=== PATIENT | male | born 1955 | race Caucasian/White ===

== ENCOUNTER 2017-05-19 07:45 | Day surgery (SDC) | payer BC ==
[2017-05-19] MEDS ORDERED: Midazolam 1 MG/ML 2 ML SDV ONE (07:47)
[2017-05-19] MEDS ORDERED: Propofol 200 MG/20 ML SDV ONE (07:48)
[2017-05-19] MEDS ORDERED: Sodium Chloride 0.9% 1,000 ML IV SCH (08:00)
[2017-05-19] MEDS ORDERED: Sodium Chloride 0.9% 5 ML Syringe FLUSH PRN (08:00)
[2017-05-19] MEDS ORDERED: Propofol 200 MG/20 ML SDV IV ONE (08:57)
[2017-05-19] MEDS ORDERED: Midazolam 1 MG/ML 2 ML SDV IV ONE (08:57)
--- NOTE | 2017-05-19 09:32 | PCM.OPNOTE ---
- General Post-Op/Procedure Note Date of Surgery/Procedure: 05/19/17 Operative Procedure(s): Colonoscopy. Anesthesia Technique: MAC Primary Surgeon: Marin Weinstein Complications: None Condition: Good Free Text/Narrative:: INFORMED CONSENT: Patient is here today for elective colonoscopy. All aspects of this procedure have been discussed with the patient. All possible complications also, including possibility of perforation, infection, pain, bleeding and unknown complications. In the event of perforation patient may need to have abdominal exploration, colon resection, colostomy and even was discussed. Anesthetic complications were handled by anesthesia department. The patient understands fully well. Patient did not have any further questions for me at the end of my interview. The patient wishes for me to proceed. PREOPERATIVE DIAGNOSIS/INDICATIONS: [Hemoccult-positive stool, screening] POSTOPERATIVE DIAGNOSIS: [as above] INSTRUMENT USED: Olympus videocolonoscope. ASA CLASSIFICATION: [2] ANESTHESIA: Continuous EKG, oximetry and intermittent blood pressure and respiratory monitoring were performed throughout the procedure. IV Versed and Fentanyl were administered. PROCEDURE PERFORMED: Colonoscopy POSITIONS OF PATIENT: Left lateral. RECTUM: Normal. SIGMOID COLON: Normal. DESCENDING COLON: Normal. SPLENIC FLEXURE: Normal. TRANSVERSE COLON: Normal. HEPATIC FLEXURE: Normal. ASCENDING COLON: Normal. CECUM: Normal. ILEOCECAL VALVE: Normal. BIOPSY: None. TOLERANCE: Excellent. COMPLICATIONS: None.
== END 2017-05-19 11:00 | disposition home or self-care (01) ==
LOC: KA.SDS 07:45
PROVIDERS: ATTEND Family Medicine
DX: Z12.11 Encounter for screening for malignant neoplasm of colon (principal); I10 Essential (primary) hypertension; I25.10 Atherosclerotic heart disease of native coronary artery without angina pectoris; E66.9 Obesity, unspecified; E78.5 Hyperlipidemia, unspecified; E11.9 Type 2 diabetes mellitus without complications; Z95.1 Presence of aortocoronary bypass graft; Z79.82 Long term (current) use of aspirin; Z79.01 Long term (current) use of anticoagulants; Z79.899 Other long term (current) drug therapy; Z68.29 Body mass index [BMI] 29.0-29.9, adult
CPT/HCPCS: 36416; 45378; 82962; 85610; J2250; J2704; J7030

== ENCOUNTER 2018-10-13 13:57 | Inpatient (IN) | payer MEDICARE, BC ==
[2018-10-13] MEDS ORDERED: Sodium Chloride 0.9% 1,000 ML IV ONE (14:11)
[2018-10-13] MEDS ORDERED: Acetaminophen 325 MG Tab PO ONE (14:29)
[2018-10-13 14:31] LABS: ANION GAP 22.7 mmol/L (5-15)
--- NOTE | 2018-10-13 14:33 | EDM.PDOC ---
ED HPI GENERAL MEDICAL PROBLEM - General Chief Complaint: Neurological Problem Stated Complaint: Upper respiratory symptoms Time Seen by Provider: 10/13/18 14:09 Source of Information: Reports: Patient, EMS, EMS Notes Reviewed, Family, Provider ([facility]) History Limitations: Reports: No Limitations - History of Present Illness Onset: Gradual Onset Date: 10/10/18 Duration: Day(s):, Getting Worse Severity: Mild Improves with: Reports: None Worsens with: Reports: None Associated Symptoms: Reports: Confusion, Cough, cough w sputum, Fever/Chills, Shortness of Breath, Weakness - Related Data Allergies Allergy/AdvReac Type Severity Reaction Status Date / Time No Known Drug Allergies Allergy NKDA Verified 10/13/18 14:55 Home Meds: Home Meds Aspirin [Halfprin] 81 mg PO BRK 05/16/17 [History] Fish Oil/[place]-3 Fatty Acids [Fish Oil] 1 each PO DAILY 05/16/17 [History] Lisinopril [Prinivil] 20 mg PO DAILY 05/16/17 [History] Loteprednol Etabonate [Lotemax] 1 drop EYERT BID 05/16/17 [History] Metoprolol Tartrate 12.5 mg PO BID 05/16/17 [History] Warfarin [Coumadin] 5 mg PO ASDIRECTED 05/16/17 [History] atorvaSTATin [Lipitor] 20 mg PO BEDTIME 05/16/17 [History] Nitroglycerin 0.4 mg SL ASDIRECTED PRN 10/13/18 [History] Potassium Gluconate 500 mg PO BEDTIME 10/13/18 [History] Warfarin [Coumadin] 2.5 mg PO MOWEFR 10/13/18 [History] metFORMIN [Glucophage] 500 mg PO BIDMEALS 10/13/18 [History] Past Medical History HEENT History: Reports: Cataract Cardiovascular History: Reports: Heart Valve Replacement, High Cholesterol Musculoskeletal History: Reports: Gout - Infectious Disease History Infectious Disease History: Reports: Measles - Past Surgical History HEENT Surgical History: Reports: Other (See Below) Other HEENT Surgeries/Procedures: cornea transplant 1999 Cardiovascular Surgical History: Reports: Coronary Artery Bypass, Valve Replacement Musculoskeletal Surgical History: Reports: None Social & Family History - Family History Family Medical History: Noncontributory - Tobacco Use Smoking Status *Q: Never Smoker Second Hand Smoke Exposure: No - Caffeine Use Caffeine Use: Reports: None - Recreational Drug Use Recreational Drug Use: No ED ROS GENERAL - Review of Systems Review Of Systems: ROS reveals no pertinent complaints other than HPI. Constitutional: Reports: Fever, Chills, Weakness HEENT: Reports: No Symptoms Respiratory: Reports: Shortness of Breath, Cough, Sputum Cardiovascular: Reports: No Symptoms. Denies: Chest Pain Endocrine: Reports: No Symptoms GI/Abdominal: Reports: No Symptoms : Reports: No Symptoms Musculoskeletal: Reports: No Symptoms Skin: Reports: No Symptoms Neurological: Reports: Confusion Psychiatric: Reports: No Symptoms Hematologic/Lymphatic: Reports: No Symptoms Immunologic: Reports: No Symptoms ED EXAM, GENERAL - Physical Exam Exam: See Below Exam Limited By: No Limitations General Appearance: Alert, WD/WN, No Apparent Distress Eye Exam: Bilateral Eye: Normal Inspection Nose: Normal Inspection Throat/Mouth: Normal Inspection, Normal Oropharynx, No Airway Compromise ( Unless concern is) Head: Atraumatic, Normocephalic ( is concerned thathis words out when you see Dr. 5-year-old. He is still is slightly is is is a CT is Friday. Lab work is working with CT of ) Neck: Normal Inspection Respiratory/Chest: No Respiratory Distress, Crackles (bibasilar) Cardiovascular: Tachycardia GI/Abdominal: Normal Bowel Sounds, Soft, Non-Tender, No Organomegaly, No Distention, No Abnormal Bruit, No Mass Back Exam: Normal Inspection. No: CVA Tenderness (L), CVA Tenderness (R) Extremities: Normal Inspection, No Pedal Edema Neurological: Alert, Oriented, Abnormal Gait (Of chronic nature), Sensory/Motor Deficit (Of chronic nature), Other (Minimal slurring of some words, otherwise no new deficits. Per ). No: Normal Gait, No Motor/Sensory Deficits Psychiatric: Normal Affect, Normal Mood Skin Exam: Warm, Dry, Intact, Normal Color, No Rash Lymphatic: No Adenopathy EKG INTERPRETATION EKG Date: 10/13/18 Time: 14:10 Rhythm: Other (SR) Rate (Beats/Min): 125 [place]: LAD-Left [place] Deviation P-Wave: Variable QRS: Other (Intraventricular block) Comparison: NA - No Prior EKG Course - Vital Signs Last Recorded V/S: Last Vital Signs Temp 99.1 F 10/13/18 15:03 Pulse 116 H 10/13/18 15:09 Resp 31 H 10/13/18 14:08 BP 110/48 L 10/13/18 15:09 Pulse Ox 93 L 10/13/18 14:08 - Orders/Labs/Meds Orders: Active Orders 24 hr Category Date Time Status Patient Status [ADT] Routine ADT 10/13/18 15:44 Ordered EKG Documentation Completion [RC] ASDIRECTED Care 10/13/18 15:31 Active Oxygen Therapy [RC] PRN Care 10/13/18 15:44 Ordered Peripheral IV Care [RC] . DIRECTED Care 10/13/18 14:12 Ordered VTE/DVT Education [RC] PER UNIT ROUTINE Care 10/13/18 15:44 Ordered Vital Signs [RC] Q4H Care 10/13/18 15:44 Ordered CULTURE BLOOD [BC] Stat Lab 10/13/18 14:38 Ordered CULTURE BLOOD [BC] Stat Lab 10/13/18 14:38 Ordered Azithromycin [Zithromax] 500 mg Med 10/13/18 15:39 Ordered Sodium Chloride 0.9% [Normal Saline] 250 ml IV ONETIME Sodium Chloride 0.9% [Saline Flush] Med 10/13/18 14:11 Ordered 10 ml FLUSH Q8HR PRN Blood Culture x2 Reflex Set [OM.PC] Stat Oth 10/13/18 14:38 Ordered Peripheral IV Insertion Adult [OM.PC] Routine Oth 10/13/18 14:11 Ordered Resuscitation Status Routine Resus Stat 10/13/18 15:44 Ordered EKG 12 Lead [EK] Routine Ther 10/13/18 14:05 Ordered Medication Orders Azithromycin 500 mg/ Sodium (Chloride) 250 mls @ 250 mls/hr IV ONETIME ONE Stop: 10/13/18 16:38 Sodium Chloride (Saline Flush) 10 ml FLUSH Q8HR PRN PRN Reason: keep vein open Labs: Laboratory Tests 10/13/18 10/13/18 10/13/18 Range/Units 14:10 14:10 14:10 WBC 19.73 H (5.00-10.00) 10^3/uL RBC 5.04 (4.50-6.00) 10^6/uL Hgb 13.5 (13.0-17.0) g/dL Hct 39.1 L (40.0-52.0) % MCV 77.6 L (82.0-92.0) fL MCH 26.8 L (27.0-31.0) pg MCHC 34.5 (32.0-36.0) g/dL RDW 15.4 H (11.5-14.5) % Plt Count 167 (150-400) 10^3/uL MPV 12.0 H (7.4-10.4) fL Add Manual Diff Yes Neutrophils % (Manual) 91 H (50-70) % Band Neutrophils % 1 L (4-12) % Lymphocytes % (Manual) 3 L (20-40) % Monocytes % (Manual) 5 (2-8) % Absolute Neutrophils 18.1516 Lymphocytes # (Manual) 0.5919 Monocytes # (Manual) 0.9865 PT 15.9 H (8.9-11.4) SEC INR 1.6 H (0.9-1.1) APTT 35.2 H (23.1-31.3) SEC Sodium 119 L* (136-145) mmol/L Potassium 5.0 (3.3-5.3) mmol/L Chloride 85 L* (98-115) mmol/L Carbon Dioxide 16.3 L (21.0-32.0) mmol/L Anion Gap 22.7 H (5-15) mmol/L BUN 93 H* (6-25) mg/dL Creatinine 2.87 H (0.51-1.17) mg/dL Est Cr Clr Drug Dosing TNP Estimated GFR (MDRD) 22 mL/min Glucose 463 H (75 - 99) mg/dL Lactic Acid (0.4-2.0) mmol/L Calcium 8.8 (8.7-10.3) mg/dL Total Bilirubin 1.3 H (0.2-1.0) mg/dL AST 34 (15-37) U/L ALT 18 (12-78) U/L Alkaline Phosphatase 74 (46-116) IU/L Total Protein 7.3 (6.4-8.2) g/dL Albumin 2.86 L (3.00-4.80) g/dL 10/13/18 Range/Units 14:52 WBC (5.00-10.00) 10^3/uL RBC (4.50-6.00) 10^6/uL Hgb (13.0-17.0) g/dL Hct (40.0-52.0) % MCV (82.0-92.0) fL MCH (27.0-31.0) pg MCHC (32.0-36.0) g/dL RDW (11.5-14.5) % Plt Count (150-400) 10^3/uL MPV (7.4-10.4) fL Add Manual Diff Neutrophils % (Manual) (50-70) % Band Neutrophils % (4-12) % Lymphocytes % (Manual) (20-40) % Monocytes % (Manual) (2-8) % Absolute Neutrophils Lymphocytes # (Manual) Monocytes # (Manual) PT (8.9-11.4) SEC INR (0.9-1.1) APTT (23.1-31.3) SEC Sodium (136-145) mmol/L Potassium (3.3-5.3) mmol/L Chloride (98-115) mmol/L Carbon Dioxide (21.0-32.0) mmol/L Anion Gap (5-15) mmol/L BUN (6-25) mg/dL Creatinine (0.51-1.17) mg/dL Est Cr Clr Drug Dosing Estimated GFR (MDRD) mL/min Glucose (75 - 99) mg/dL Lactic Acid 2.6 H (0.4-2.0) mmol/L Calcium (8.7-10.3) mg/dL Total Bilirubin (0.2-1.0) mg/dL AST (15-37) U/L ALT (12-78) U/L Alkaline Phosphatase (46-116) IU/L Total Protein (6.4-8.2) g/dL Albumin (3.00-4.80) g/dL Meds: Medications Generic Name Dose Route Start Last Admin Trade Name Freq PRN Reason Stop Dose Admin Azithromycin 500 mg/ Sodium 250 mls @ 250 mls/hr 10/13/18 15:39 Chloride IV 10/13/18 16:38 ONETIME ONE Sodium Chloride 10 ml 10/13/18 14:11 Saline Flush FLUSH Q8HR PRN keep vein open Discontinued Medications Generic Name Dose Route Start Last Admin Trade Name Freq PRN Reason Stop Dose Admin Acetaminophen 650 mg 10/13/18 14:29 10/13/18 14:33 Tylenol PO 10/13/18 14:30 650 mg NOW ONE Administration Ceftriaxone Sodium 1 gm 10/13/18 15:39 Rocephin IVPUSH 10/13/18 15:40 ONETIME ONE Sodium Chloride 1,000 mls @ 999 mls/hr 10/13/18 14:11 10/13/18 14:25 Normal Saline IV 10/13/18 15:11 999 mls/hr .BOLUS ONE Administration Metformin HCl 500 mg 10/13/18 14:56 10/13/18 15:09 Glucophage PO 10/13/18 14:57 500 mg ONETIME ONE Administration Metoprolol Tartrate 12.5 mg 10/13/18 14:56 10/13/18 15:09 Lopressor PO 10/13/18 14:57 12.5 mg ONETIME ONE Administration - Radiology Interpretation Free Text/Narrative:: Chest x-ray shows right lower lobe pneumonia. CT head without contrast shows no acute intracranial process - Re-Assessments/Exams Free Text/Narrative Re-Assessment/Exam: 10/13/18 15:39 Vital signs stable, patient not confused and speaking properly, at bedside. Discussed case with Dr. Restrepo and patient will be admitted inpatient and followed. 1 g Rocephin and 500 mg Zithromax given in the ER. 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 use Diabetes mellitus complication status: with kidney complications Diabetes mellitus complication detail: with other kidney complication Qualified Code(s): E11.29 - Type 2 diabetes mellitus with other diabetic kidney complication Pneumonia Qualifiers: Pneumonia type: due to unspecified organism Laterality: right Lung location: lower lobe of lung Qualified Code(s): J18.1 - Lobar pneumonia, unspecified organism Atrial fibrillation Qualifiers: Atrial fibrillation type: chronic Qualified Code(s): I48.2 - Chronic atrial fibrillation - Discharge Information Referrals: Jessica Alcazar PA-C [Primary Care Provider] - Forms: ED Department Discharge - My Orders Last 24 Hours: My Active Orders 10/13/18 14:05 EKG 12 Lead [EK] Routine 10/13/18 14:11 Sodium Chloride 0.9% [Saline Flush] 10 ml FLUSH Q8HR PRN Peripheral IV Insertion Adult [OM.PC] Routine 10/13/18 14:12 Peripheral IV Care [RC] . DIRECTED 10/13/18 14:38 CULTURE BLOOD [BC] Stat CULTURE BLOOD [BC] Stat Blood Culture x2 Reflex Set [OM.PC] Stat 10/13/18 15:31 EKG Documentation Completion [RC] ASDIRECTED 10/13/18 15:39 Azithromycin [Zithromax] 500 mg Sodium Chloride 0.9% [Normal Saline] 250 ml IV ONETIME 10/13/18 15:44 Patient Status [ADT] Routine Oxygen Therapy [RC] PRN VTE/DVT Education [RC] PER UNIT ROUTINE Vital Signs [RC] Q4H Resuscitation Status Routine - Assessment/Plan Last 24 Hours: My Active Orders 10/13/18 14:05 EKG 12 Lead [EK] Routine 10/13/18 14:11 Sodium Chloride 0.9% [Saline Flush] 10 ml FLUSH Q8HR PRN Peripheral IV Insertion Adult [OM.PC] Routine 10/13/18 14:12 Peripheral IV Care [RC] . DIRECTED 10/13/18 14:38 CULTURE BLOOD [BC] Stat CULTURE BLOOD [BC] Stat Blood Culture x2 Reflex Set [OM.PC] Stat 10/13/18 15:31 EKG Documentation Completion [RC] ASDIRECTED 10/13/18 15:39 Azithromycin [Zithromax] 500 mg Sodium Chloride 0.9% [Normal Saline] 250 ml IV ONETIME 10/13/18 15:44 Patient Status [ADT] Routine Oxygen Therapy [RC] PRN VTE/DVT Education [RC] PER UNIT ROUTINE Vital Signs [RC] Q4H Resuscitation Status Routine Assessment:: Pneumonia Plan: Admit inpatient to [facility]
[2018-10-13 14:34] LABS: CHLORIDE,CL 85 mmol/L (98-115); SODIUM,NA 119 mmol/L (136-145)
[2018-10-13] MEDS ORDERED: Metoprolol Tartrate 25 MG Tab PO ONE (14:56)
[2018-10-13] MEDS ORDERED: metFORMIN 500 MG Tab PO ONE (14:56)
--- NOTE | 2018-10-13 15:29 | CT ---
[id number] CT/CT Head WO IV EXAM: NONCONTRAST HEAD CT INDICATION: Difficulty speaking. COMPARISON: None. DISCUSSION: The ventricles and sulci are normal in size and configuration. There are mild chronic small vessel ischemic changes. 4 mm age-indeterminate right cerebellar hemisphere lacunar infarct. No mass effect or midline shift. No acute hemorrhage or extra-axial fluid collection. No acute territorial infarct is identified. A limited look at the orbits and paranasal sinuses is unremarkable. IMPRESSION: 1. Mild chronic small vessel ischemic changes and small age-indeterminate right cerebellar lacunar infarct. 2. No definite explanation for speech difficulties. Ward Crespo MD 10/13/18 [id number] Thank you for allowing us to participate in the care of your patient.
--- NOTE | 2018-10-13 15:30 | CR ---
[id number] RAD/RAD Chest PA or AP 1V EXAM: RAD Chest PA or AP 1V INDICATION: UPPER RESPIRATORY INFECTION. COMPARISON: [place] [facility]. DISCUSSION: Right lung base parenchymal opacity. Correlate for signs of infection, as this is suspicious for pneumonia. Left lung is clear. Cardiomediastinal silhouette is stable in size and contour. IMPRESSION: Abnormal right lung base, most consistent with pneumonia described above. Tobias Plummer MD 10/13/18 1526 Thank you for allowing us to participate in the care of your patient.
[2018-10-13] MEDS ORDERED: Azithromycin 500 MG in Sodium Chloride 0.9% 250 ML IV ONE (15:39)
[2018-10-13] MEDS ORDERED: cefTRIAXone 1 GM Vial IVPUSH ONE (15:39)
--- NOTE | 2018-10-13 18:11 | PCM.HP ---
H&P History of Present Illness - General Date of Service: 10/13/18 Admit Problem/Dx: Admission Diagnosis/Problem Admission Diagnosis/Problem Pneumonia - History of Present Illness Initial Comments - Free Text/Narative: Patient has been poorly past 2-3 days, arived at [facility] and staff noticed his speech was "off" and not clear and was sent to [facility] ED via ambulance. Was in his normal state of health up until 3 days ago, sweaty, alter speech, no n/v/d, denied cough, fell and hit his head, states he was unstable, Denies EToh or drugs. - Related Data Allergies/Adverse Reactions: Allergies Allergy/AdvReac Type Severity Reaction Status Date / Time No Known Drug Allergies Allergy NKDA Verified 10/13/18 14:55 Home Medications: Home Meds Aspirin [Halfprin] 81 mg PO BRK 05/16/17 [History] Fish Oil/[place]-3 Fatty Acids [Fish Oil] 1 each PO DAILY 05/16/17 [History] Lisinopril [Prinivil] 20 mg PO DAILY 05/16/17 [History] Loteprednol Etabonate [Lotemax] 1 drop EYERT BID 05/16/17 [History] Metoprolol Tartrate 12.5 mg PO BID 05/16/17 [History] Warfarin [Coumadin] 5 mg PO SUTUTHSA 05/16/17 [History] atorvaSTATin [Lipitor] 20 mg PO DAILY 05/16/17 [History] Nitroglycerin 0.4 mg SL ASDIRECTED PRN 10/13/18 [History] Potassium Gluconate 500 mg PO BEDTIME 10/13/18 [History] Warfarin [Coumadin] 2.5 mg PO MOWEFR 10/13/18 [History] metFORMIN [Glucophage] 500 mg PO BIDMEALS 10/13/18 [History] Past Medical History HEENT History: Reports: Cataract Cardiovascular History: Reports: Heart Valve Replacement, High Cholesterol Musculoskeletal History: Reports: Gout Endocrine/Metabolic History: Reports: Diabetes, Type II - Infectious Disease History Infectious Disease History: Reports: Measles - Past Surgical History Head Surgeries/Procedures: Reports: None HEENT Surgical History: Reports: Other (See Below) Other HEENT Surgeries/Procedures: cornea transplant 1999 Cardiovascular Surgical History: Reports: Coronary Artery Bypass, Valve Replacement GI Surgical History: Reports: Colonoscopy Endocrine Surgical History: Reports: None Musculoskeletal Surgical History: Reports: None Dermatological Surgical History: Reports: None Social & Family History - Family History HEENT: Reports: None Cardiac: Reports: None Respiratory: Reports: Other (See Below) GI: Reports: None : Reports: None OBGYN: Reports: None Musculoskeletal: Reports: None - Tobacco Use Smoking Status *Q: Never Smoker Second Hand Smoke Exposure: No - Caffeine Use Caffeine Use: Reports: None - Recreational Drug Use Recreational Drug Use: No H&P Review of Systems - Review of Systems: Review Of Systems: See Below General: Reports: Malaise, Weakness, Night Sweats, Diaphoresis. Denies: Fever HEENT: Reports: No Symptoms Pulmonary: Reports: Shortness of Breath, Wheezing. Denies: Cough, Sputum Cardiovascular: Reports: No Symptoms Gastrointestinal: Reports: Decreased Appetite. Denies: Constipation, Diarrhea, Difficulty Swallowing, Melena Genitourinary: Reports: No Symptoms Musculoskeletal: Reports: No Symptoms Skin: Reports: No Symptoms Psychiatric: Denies: Confusion Neurological: Denies: Confusion Hematologic/Lymphatic: Reports: No Symptoms Immunologic: Reports: No Symptoms Exam - Exam Exam: See Below - Vital Signs Vital Signs: Last Vital Signs Temp 99.9 F 10/13/18 15:44 Pulse 122 H 10/13/18 15:44 Resp 25 H 10/13/18 15:44 BP 97/47 L 10/13/18 15:44 Pulse Ox 93 L 10/13/18 15:44 Weight: 200 lb 11.2 oz - Exam Quality Assessment: Supplemental Oxygen. No: Skin Breakdown General: Alert, Oriented, Cooperative, Mild Distress HEENT: Hearing Intact. No: Mucosa Moist & [place] Neck: Supple Lungs: Rhonchi Cardiovascular: Tachycardia GI/Abdominal Exam: Soft, Non-Tender. No: Hernia (Male) Exam: Deferred Back Exam: No: CVA Tenderness (L), CVA Tenderness (R) Extremities: Slow Capillary Refill. No: Pedal Edema Peripheral Pulses: 2+: Radial (L) Skin: Moist Neurological: Normal Tone, Sensation Intact Neuro Extensive - Mental Status: Alert, Oriented x3, Memory Intact Neuro Extensive - Motor, Sensory, Reflexes: CN II-XII Intact, Normal Reflexes. No: Ataxia, Receptive Aphasia, Total Aphasia Psychiatric: Alert - Patient Data Lab Results Last 24 hrs: Laboratory Results - last 24 hr 03/10/13/18 10/13/18 Range/Units 14:10 14:10 14:10 WBC 19.73 H (5.00-10.00) 10^3/uL RBC 5.04 (4.50-6.00) 10^6/uL Hgb 13.5 (13.0-17.0) g/dL Hct 39.1 L (40.0-52.0) % MCV 77.6 L (82.0-92.0) fL MCH 26.8 L (27.0-31.0) pg MCHC 34.5 (32.0-36.0) g/dL RDW 15.4 H (11.5-14.5) % Plt Count 167 (150-400) 10^3/uL MPV 12.0 H (7.4-10.4) fL Add Manual Diff Yes Neutrophils % (Manual) 91 H (50-70) % Band Neutrophils % 1 L (4-12) % Lymphocytes % (Manual) 3 L (20-40) % Monocytes % (Manual) 5 (2-8) % Absolute Neutrophils 18.1516 Lymphocytes # (Manual) 0.5919 Monocytes # (Manual) 0.9865 PT 15.9 H (8.9-11.4) SEC INR 1.6 H (0.9-1.1) APTT 35.2 H (23.1-31.3) SEC Sodium 119 L* (136-145) mmol/L Potassium 5.0 (3.3-5.3) mmol/L Chloride 85 L* (98-115) mmol/L Carbon Dioxide 16.3 L (21.0-32.0) mmol/L Anion Gap 22.7 H (5-15) mmol/L BUN 93 H* (6-25) mg/dL Creatinine 2.87 H (0.51-1.17) mg/dL Est Cr Clr Drug Dosing TNP Estimated GFR (MDRD) 22 mL/min Glucose 463 H (75 - 99) mg/dL POC Glucose (74-106) mg/dl Lactic Acid (0.4-2.0) mmol/L Calcium 8.8 (8.7-10.3) mg/dL Total Bilirubin 1.3 H (0.2-1.0) mg/dL AST 34 (15-37) U/L ALT 18 (12-78) U/L Alkaline Phosphatase 74 (46-116) IU/L Total Protein 7.3 (6.4-8.2) g/dL Albumin 2.86 L (3.00-4.80) g/dL 10/13/18 10/13/18 Range/Units 14:52 16:29 WBC (5.00-10.00) 10^3/uL RBC (4.50-6.00) 10^6/uL Hgb (13.0-17.0) g/dL Hct (40.0-52.0) % MCV (82.0-92.0) fL MCH (27.0-31.0) pg MCHC (32.0-36.0) g/dL RDW (11.5-14.5) % Plt Count (150-400) 10^3/uL MPV (7.4-10.4) fL Add Manual Diff Neutrophils % (Manual) (50-70) % Band Neutrophils % (4-12) % Lymphocytes % (Manual) (20-40) % Monocytes % (Manual) (2-8) % Absolute Neutrophils Lymphocytes # (Manual) Monocytes # (Manual) PT (8.9-11.4) SEC INR (0.9-1.1) APTT (23.1-31.3) SEC Sodium (136-145) mmol/L Potassium (3.3-5.3) mmol/L Chloride (98-115) mmol/L Carbon Dioxide (21.0-32.0) mmol/L Anion Gap (5-15) mmol/L BUN (6-25) mg/dL Creatinine (0.51-1.17) mg/dL Est Cr Clr Drug Dosing Estimated GFR (MDRD) mL/min Glucose (75 - 99) mg/dL POC Glucose 484 H (74-106) mg/dl Lactic Acid 2.6 H (0.4-2.0) mmol/L Calcium (8.7-10.3) mg/dL Total Bilirubin (0.2-1.0) mg/dL AST (15-37) U/L ALT (12-78) U/L Alkaline Phosphatase (46-116) IU/L Total Protein (6.4-8.2) g/dL Albumin (3.00-4.80) g/dL Result Diagrams: 10/15/18 07:20 10/16/18 06:41 [place] Results Last 24 hrs: Microbiology 10/13/18 14:10 Influenza Type A Antigen Screen - Final Nasal Aspirate, Unspecified NEGATIVE INFLUENZA A VIRUS AG Influenza Type B Antigen Screen - Final NEGATIVE INFLUENZA B VIRUS AG Problem List Initiated/Reviewed/Updated: Yes Orders Last 24hrs: Active Orders 24 hr Category Date Time Status Patient Status [ADT] Routine ADT 10/13/18 15:44 Ordered EKG Documentation Completion [RC] ASDIRECTED Care 10/13/18 15:31 Active Oxygen Therapy [RC] .PRN Care 10/13/18 15:44 Active Peripheral IV Care [RC] . DIRECTED Care 10/13/18 14:12 Active VTE/DVT Education [RC] PER UNIT ROUTINE Care 10/13/18 15:44 Active Vital Signs [RC] 1900,2300,0300,0700,1100,1500 Care 10/13/18 15:44 Active CULTURE BLOOD [BC] Stat Lab 10/13/18 15:00 Received CULTURE BLOOD [BC] Stat Lab 10/13/18 15:00 Received Sodium Chloride 0.9% [Saline Flush] Med 10/13/18 14:11 Active 10 ml FLUSH Q8HR PRN Blood Culture x2 Reflex Set [OM.PC] Stat Oth 10/13/18 14:38 Ordered Peripheral IV Insertion Adult [OM.PC] Routine Oth 10/13/18 14:11 Ordered Resuscitation Status Routine Resus Stat 10/13/18 15:44 Ordered Medication Orders Sodium Chloride (Saline Flush) 10 ml FLUSH Q8HR PRN PRN Reason: keep vein open Assessment/Plan Comment:: History of present illness Patient has been feeling very poorly past 2-3 days, arived at [facility] and staff noticed his speech was "off" and not clear and was sent to [facility] ED via ambulance. Was in his normal state of health up until 3 days ago, sweaty, alter speech, no n/v/d, denied cough, fell and hit his head, states he was unstable, Denies EToh tobacco or any other illicit drugs. Patient has had progressive weakness since the onset of his symptoms. also states on Friday the patient had a new onset speech difficulty in which he had difficulty finding words and speaking. He seemed to improve somewhat but today she has noted that he is unable to express words correctly. She also notes that at times his extremities shake. The patient had a fall on Friday due to his weakness and reportedly hit his head. Denies any head pain although he feels quite dizzy and lightheaded. Primary diagnosis Pneumonia, right lung base, CAP, Sepsis, T2DM uncontrolled, insulin for now, consider GLP-1a, Atrial flutter, paroxysmal, [id number] score 5, anticoagulation, lineant rate control with metoprolol Chronic problems S/P CABG x 3 S/P mitral valve annuloplasty HLD, statin therapy, HTN, [place] inhibition, metoprolol tartrate CAD, DAPT with ASA, DAPT score? Disposition for tonight, admit to acute care, full code at this time, fluids, add insulin, continue antibiotics azithromycin and Rocephin, oxygen to keep oxygen greater than 94%, hold metformin, monitor for any instability, telemetry. Labs in a.m. Monitor very carefully.
[2018-10-13] MEDS ORDERED: Nitroglycerin 0.4 MG Tab.SL SL PRN (19:17)
[2018-10-13] MEDS ORDERED: Sodium Chloride 0.9% 1,000 ML IV SCH (19:30)
[2018-10-13] MEDS ORDERED: Warfarin 5 MG Tab PO SCH (19:30)
[2018-10-13] MEDS ORDERED: Insulin Detemir 100 Units/ML 3 ML Pen SUBCUT ONE (19:40)
[2018-10-13] MEDS ORDERED: Insulin Aspart 100 Units/ML 3 ML Pen SUBCUT ONE (19:44)
[2018-10-13] MEDS ORDERED: Sodium Chloride 0.9% 500 ML IV ONE ×2 (19:58→22:45)
[2018-10-13] MEDS: Metoprolol Tartrate 25 MG Tab PO SCH (21:26)
[2018-10-13] MEDS ORDERED: Sodium Chloride 0.9% 10 ML SDV IV ONE (21:45)
[2018-10-13] MEDS ORDERED: Insulin Regular, Human 100 Units/ML 10 ML Vial IV ONE (22:24)
[2018-10-14] MEDS: guaiFENesin/Dextromethorphan 100-10 MG/5 ML Soln 5 ML Cup PO PRN ×4 (00:16→20:19)
[2018-10-14] MEDS ORDERED: Insulin Regular, Human 100 Units/ML 10 ML Vial IV ONE (01:59)
[2018-10-14] MEDS: Albuterol/Ipratropium 3.0-0.5 MG/3 ML Neb Soln NEB PRN (03:33)
[2018-10-14] MEDS ORDERED: Acetaminophen 325 MG Tab PO PRN (04:33)
[2018-10-14 08:14] LABS: ANION GAP 20.3 mmol/L (5-15)
[2018-10-14] MEDS: Metoprolol Tartrate 25 MG Tab PO SCH ×2 (09:05→20:20)
[2018-10-14] MEDS: cefTRIAXone 1 GM Vial IVPUSH SCH (09:05)
[2018-10-14] MEDS: Aspirin 81 MG Tab.EC PO SCH (09:06)
[2018-10-14] MEDS: Insulin Aspart 100 Units/ML 3 ML Pen SUBCUT SCH ×3 (09:11→18:24)
[2018-10-14] MEDS: Sodium Chloride 0.9% 10 ML Syringe FLUSH PRN (09:13)
--- NOTE | 2018-10-14 11:12 | PCM.PN ---
- General Info Date of Service: 10/14/18 Functional Status: Reports: Tolerating Diet, Urinating. Denies: Ambulating, Incentive Spirometry - Review of Systems General: Reports: Weakness, Fatigue, Malaise, Night Sweats. Denies: Fever HEENT: Reports: No Symptoms Pulmonary: Reports: Shortness of Breath, Cough, Sputum Cardiovascular: Denies: Chest Pain, Palpitations, Edema Gastrointestinal: Reports: No Symptoms Genitourinary: Reports: No Symptoms Musculoskeletal: Reports: No Symptoms Skin: Reports: Dryness Neurological: Denies: Confusion Psychiatric: Reports: No Symptoms - Patient Data Vitals - Most Recent: Last Vital Signs Temp 98.2 F 10/14/18 11:00 Pulse 74 10/14/18 11:00 Resp 20 10/14/18 11:00 BP 108/58 L 10/14/18 11:00 Pulse Ox 95 10/14/18 11:00 Weight - Most Recent: 200 lb 11.2 oz I&O - Last 24 Hours: Intake & Output 10/13/18 10/14/18 10/14/18 22:59 06:59 14:59 Intake Total 1420 1307 Output Total 520 Balance 1420 787 Lab Results Last 24 Hours: Laboratory Results - last 24 hr 10/13/18 10/13/18 10/13/18 Range/Units 14:10 14:10 14:10 WBC 19.73 H (5.00-10.00) 10^3/uL RBC 5.04 (4.50-6.00) 10^6/uL Hgb 13.5 (13.0-17.0) g/dL Hct 39.1 L (40.0-52.0) % MCV 77.6 L (82.0-92.0) fL MCH 26.8 L (27.0-31.0) pg MCHC 34.5 (32.0-36.0) g/dL RDW 15.4 H (11.5-14.5) % Plt Count 167 (150-400) 10^3/uL MPV 12.0 H (7.4-10.4) fL Immature Gran % (Auto) (0.0-5.0) % Neut % (Auto) (50.0-70.0) % Lymph % (Auto) (20.0-40.0) % Hitchcock % (Auto) (2.0-8.0) % Eos % (Auto) (1.0-3.0) % Baso % (Auto) (0.0-1.0) % Immature Gran # (Auto) (0.00-0.50) 10^3/uL Neut # (Auto) (2.50-7.00) 10^3/uL Lymph # (Auto) (1.00-4.00) 10^3/uL Hitchcock # (Auto) (0.10-0.80) 10^3/uL Eos # (Auto) (0.10-0.30) 10^3/uL Baso # (Auto) (0.00-0.10) 10^3/uL Add Manual Diff Yes Neutrophils % (Manual) 91 H (50-70) % Band Neutrophils % 1 L (4-12) % Lymphocytes % (Manual) 3 L (20-40) % Monocytes % (Manual) 5 (2-8) % Absolute Neutrophils 18.1516 Lymphocytes # (Manual) 0.5919 Monocytes # (Manual) 0.9865 PT 15.9 H (8.9-11.4) SEC INR 1.6 H (0.9-1.1) APTT 35.2 H (23.1-31.3) SEC Sodium 119 L* (136-145) mmol/L Potassium 5.0 (3.3-5.3) mmol/L Chloride 85 L* (98-115) mmol/L Carbon Dioxide 16.3 L (21.0-32.0) mmol/L Anion Gap 22.7 H (5-15) mmol/L BUN 93 H* (6-25) mg/dL Creatinine 2.87 H (0.51-1.17) mg/dL Est Cr Clr Drug Dosing TNP Estimated GFR (MDRD) 22 mL/min Glucose 463 H (75 - 99) mg/dL POC Glucose (74-106) mg/dl Lactic Acid (0.4-2.0) mmol/L Calcium 8.8 (8.7-10.3) mg/dL Total Bilirubin 1.3 H (0.2-1.0) mg/dL AST 34 (15-37) U/L ALT 18 (12-78) U/L Alkaline Phosphatase 74 (46-116) IU/L Troponin I (0.00-0.070) ng/mL C-Reactive Protein (0.0-0.9) mg/dL B-Natriuretic Peptide (0-100) pg/mL Total Protein 7.3 (6.4-8.2) g/dL Albumin 2.86 L (3.00-4.80) g/dL 10/13/18 10/13/18 10/13/18 Range/Units 14:10 14:52 16:29 WBC (5.00-10.00) 10^3/uL RBC (4.50-6.00) 10^6/uL Hgb (13.0-17.0) g/dL Hct (40.0-52.0) % MCV (82.0-92.0) fL MCH (27.0-31.0) pg MCHC (32.0-36.0) g/dL RDW (11.5-14.5) % Plt Count (150-400) 10^3/uL MPV (7.4-10.4) fL Immature Gran % (Auto) (0.0-5.0) % Neut % (Auto) (50.0-70.0) % Lymph % (Auto) (20.0-40.0) % Hitchcock % (Auto) (2.0-8.0) % Eos % (Auto) (1.0-3.0) % Baso % (Auto) (0.0-1.0) % Immature Gran # (Auto) (0.00-0.50) 10^3/uL Neut # (Auto) (2.50-7.00) 10^3/uL Lymph # (Auto) (1.00-4.00) 10^3/uL Hitchcock # (Auto) (0.10-0.80) 10^3/uL Eos # (Auto) (0.10-0.30) 10^3/uL Baso # (Auto) (0.00-0.10) 10^3/uL Add Manual Diff Neutrophils % (Manual) (50-70) % Band Neutrophils % (4-12) % Lymphocytes % (Manual) (20-40) % Monocytes % (Manual) (2-8) % Absolute Neutrophils Lymphocytes # (Manual) Monocytes # (Manual) PT (8.9-11.4) SEC INR (0.9-1.1) APTT (23.1-31.3) SEC Sodium (136-145) mmol/L Potassium (3.3-5.3) mmol/L Chloride (98-115) mmol/L Carbon Dioxide (21.0-32.0) mmol/L Anion Gap (5-15) mmol/L BUN (6-25) mg/dL Creatinine (0.51-1.17) mg/dL Est Cr Clr Drug Dosing Estimated GFR (MDRD) mL/min Glucose (75 - 99) mg/dL POC Glucose 484 H (74-106) mg/dl Lactic Acid 2.6 H (0.4-2.0) mmol/L Calcium (8.7-10.3) mg/dL Total Bilirubin (0.2-1.0) mg/dL AST (15-37) U/L ALT (12-78) U/L Alkaline Phosphatase (46-116) IU/L Troponin I (0.00-0.070) ng/mL C-Reactive Protein > 12.0 H (0.0-0.9) mg/dL B-Natriuretic Peptide (0-100) pg/mL Total Protein (6.4-8.2) g/dL Albumin (3.00-4.80) g/dL 10/13/18 10/13/18 10/13/18 Range/Units 20:12 21:31 23:13 WBC (5.00-10.00) 10^3/uL RBC (4.50-6.00) 10^6/uL Hgb (13.0-17.0) g/dL Hct (40.0-52.0) % MCV (82.0-92.0) fL MCH (27.0-31.0) pg MCHC (32.0-36.0) g/dL RDW (11.5-14.5) % Plt Count (150-400) 10^3/uL MPV (7.4-10.4) fL Immature Gran % (Auto) (0.0-5.0) % Neut % (Auto) (50.0-70.0) % Lymph % (Auto) (20.0-40.0) % Hitchcock % (Auto) (2.0-8.0) % Eos % (Auto) (1.0-3.0) % Baso % (Auto) (0.0-1.0) % Immature Gran # (Auto) (0.00-0.50) 10^3/uL Neut # (Auto) (2.50-7.00) 10^3/uL Lymph # (Auto) (1.00-4.00) 10^3/uL Hitchcock # (Auto) (0.10-0.80) 10^3/uL Eos # (Auto) (0.10-0.30) 10^3/uL Baso # (Auto) (0.00-0.10) 10^3/uL Add Manual Diff Neutrophils % (Manual) (50-70) % Band Neutrophils % (4-12) % Lymphocytes % (Manual) (20-40) % Monocytes % (Manual) (2-8) % Absolute Neutrophils Lymphocytes # (Manual) Monocytes # (Manual) PT (8.9-11.4) SEC INR (0.9-1.1) APTT (23.1-31.3) SEC Sodium (136-145) mmol/L Potassium (3.3-5.3) mmol/L Chloride (98-115) mmol/L Carbon Dioxide (21.0-32.0) mmol/L Anion Gap (5-15) mmol/L BUN (6-25) mg/dL Creatinine (0.51-1.17) mg/dL Est Cr Clr Drug Dosing Estimated GFR (MDRD) mL/min Glucose (75 - 99) mg/dL POC Glucose > 500 H > 500 H 475 H (74-106) mg/dl Lactic Acid (0.4-2.0) mmol/L Calcium (8.7-10.3) mg/dL Total Bilirubin (0.2-1.0) mg/dL AST (15-37) U/L ALT (12-78) U/L Alkaline Phosphatase (46-116) IU/L Troponin I (0.00-0.070) ng/mL C-Reactive Protein (0.0-0.9) mg/dL B-Natriuretic Peptide (0-100) pg/mL Total Protein (6.4-8.2) g/dL Albumin (3.00-4.80) g/dL 10/14/18 10/14/18 10/14/18 Range/Units 00:13 01:11 02:19 WBC (5.00-10.00) 10^3/uL RBC (4.50-6.00) 10^6/uL Hgb (13.0-17.0) g/dL Hct (40.0-52.0) % MCV (82.0-92.0) fL MCH (27.0-31.0) pg MCHC (32.0-36.0) g/dL RDW (11.5-14.5) % Plt Count (150-400) 10^3/uL MPV (7.4-10.4) fL Immature Gran % (Auto) (0.0-5.0) % Neut % (Auto) (50.0-70.0) % Lymph % (Auto) (20.0-40.0) % Hitchcock % (Auto) (2.0-8.0) % Eos % (Auto) (1.0-3.0) % Baso % (Auto) (0.0-1.0) % Immature Gran # (Auto) (0.00-0.50) 10^3/uL Neut # (Auto) (2.50-7.00) 10^3/uL Lymph # (Auto) (1.00-4.00) 10^3/uL Hitchcock # (Auto) (0.10-0.80) 10^3/uL Eos # (Auto) (0.10-0.30) 10^3/uL Baso # (Auto) (0.00-0.10) 10^3/uL Add Manual Diff Neutrophils % (Manual) (50-70) % Band Neutrophils % (4-12) % Lymphocytes % (Manual) (20-40) % Monocytes % (Manual) (2-8) % Absolute Neutrophils Lymphocytes # (Manual) Monocytes # (Manual) PT (8.9-11.4) SEC INR (0.9-1.1) APTT (23.1-31.3) SEC Sodium (136-145) mmol/L Potassium (3.3-5.3) mmol/L Chloride (98-115) mmol/L Carbon Dioxide (21.0-32.0) mmol/L Anion Gap (5-15) mmol/L BUN (6-25) mg/dL Creatinine (0.51-1.17) mg/dL Est Cr Clr Drug Dosing Estimated GFR (MDRD) mL/min Glucose (75 - 99) mg/dL POC Glucose 373 H 353 H 293 H (74-106) mg/dl Lactic Acid (0.4-2.0) mmol/L Calcium (8.7-10.3) mg/dL Total Bilirubin (0.2-1.0) mg/dL AST (15-37) U/L ALT (12-78) U/L Alkaline Phosphatase (46-116) IU/L Troponin I (0.00-0.070) ng/mL C-Reactive Protein (0.0-0.9) mg/dL B-Natriuretic Peptide (0-100) pg/mL Total Protein (6.4-8.2) g/dL Albumin (3.00-4.80) g/dL 10/14/18 10/14/18 10/14/18 Range/Units 02:20 03:14 04:30 WBC (5.00-10.00) 10^3/uL RBC (4.50-6.00) 10^6/uL Hgb (13.0-17.0) g/dL Hct (40.0-52.0) % MCV (82.0-92.0) fL MCH (27.0-31.0) pg MCHC (32.0-36.0) g/dL RDW (11.5-14.5) % Plt Count (150-400) 10^3/uL MPV (7.4-10.4) fL Immature Gran % (Auto) (0.0-5.0) % Neut % (Auto) (50.0-70.0) % Lymph % (Auto) (20.0-40.0) % Hitchcock % (Auto) (2.0-8.0) % Eos % (Auto) (1.0-3.0) % Baso % (Auto) (0.0-1.0) % Immature Gran # (Auto) (0.00-0.50) 10^3/uL Neut # (Auto) (2.50-7.00) 10^3/uL Lymph # (Auto) (1.00-4.00) 10^3/uL Hitchcock # (Auto) (0.10-0.80) 10^3/uL Eos # (Auto) (0.10-0.30) 10^3/uL Baso # (Auto) (0.00-0.10) 10^3/uL Add Manual Diff Neutrophils % (Manual) (50-70) % Band Neutrophils % (4-12) % Lymphocytes % (Manual) (20-40) % Monocytes % (Manual) (2-8) % Absolute Neutrophils Lymphocytes # (Manual) Monocytes # (Manual) PT (8.9-11.4) SEC INR (0.9-1.1) APTT (23.1-31.3) SEC Sodium (136-145) mmol/L Potassium (3.3-5.3) mmol/L Chloride (98-115) mmol/L Carbon Dioxide (21.0-32.0) mmol/L Anion Gap (5-15) mmol/L BUN (6-25) mg/dL Creatinine (0.51-1.17) mg/dL Est Cr Clr Drug Dosing Estimated GFR (MDRD) mL/min Glucose (75 - 99) mg/dL POC Glucose 218 H 208 H (74-106) mg/dl Lactic Acid (0.4-2.0) mmol/L Calcium (8.7-10.3) mg/dL Total Bilirubin (0.2-1.0) mg/dL AST (15-37) U/L ALT (12-78) U/L Alkaline Phosphatase (46-116) IU/L Troponin I (0.00-0.070) ng/mL C-Reactive Protein (0.0-0.9) mg/dL B-Natriuretic Peptide 307 H (0-100) pg/mL Total Protein (6.4-8.2) g/dL Albumin (3.00-4.80) g/dL 10/14/18 10/14/18 10/14/18 Range/Units 07:05 07:05 07:05 WBC 12.55 H (5.00-10.00) 10^3/uL RBC 4.30 L (4.50-6.00) 10^6/uL Hgb 11.7 L D (13.0-17.0) g/dL Hct 33.6 L (40.0-52.0) % MCV 78.1 L (82.0-92.0) fL MCH 27.2 (27.0-31.0) pg MCHC 34.8 (32.0-36.0) g/dL RDW 15.8 H (11.5-14.5) % Plt Count 143 L (150-400) 10^3/uL MPV 11.5 H (7.4-10.4) fL Immature Gran % (Auto) 4.9 (0.0-5.0) % Neut % (Auto) 86.1 H (50.0-70.0) % Lymph % (Auto) 3.0 L (20.0-40.0) % Hitchcock % (Auto) 5.8 (2.0-8.0) % Eos % (Auto) 0.1 L (1.0-3.0) % Baso % (Auto) 0.1 (0.0-1.0) % Immature Gran # (Auto) 0.61 H (0.00-0.50) 10^3/uL Neut # (Auto) 10.81 H (2.50-7.00) 10^3/uL Lymph # (Auto) 0.38 L (1.00-4.00) 10^3/uL Hitchcock # (Auto) 0.73 (0.10-0.80) 10^3/uL Eos # (Auto) 0.01 L (0.10-0.30) 10^3/uL Baso # (Auto) 0.01 (0.00-0.10) 10^3/uL Add Manual Diff Neutrophils % (Manual) (50-70) % Band Neutrophils % (4-12) % Lymphocytes % (Manual) (20-40) % Monocytes % (Manual) (2-8) % Absolute Neutrophils Lymphocytes # (Manual) Monocytes # (Manual) PT 24.4 H D (8.9-11.4) SEC INR 2.5 H (0.9-1.1) APTT (23.1-31.3) SEC Sodium 128 L (136-145) mmol/L Potassium 4.4 (3.3-5.3) mmol/L Chloride 95 L (98-115) mmol/L Carbon Dioxide 17.1 L (21.0-32.0) mmol/L Anion Gap 20.3 H (5-15) mmol/L BUN 98 H* (6-25) mg/dL Creatinine 2.86 H (0.51-1.17) mg/dL Est Cr Clr Drug Dosing 28.26 Estimated GFR (MDRD) 22 mL/min Glucose 242 H (75 - 99) mg/dL POC Glucose (74-106) mg/dl Lactic Acid (0.4-2.0) mmol/L Calcium 8.0 L (8.7-10.3) mg/dL Total Bilirubin 0.6 (0.2-1.0) mg/dL AST 62 H (15-37) U/L ALT 30 (12-78) U/L Alkaline Phosphatase 62 (46-116) IU/L Troponin I (0.00-0.070) ng/mL C-Reactive Protein (0.0-0.9) mg/dL B-Natriuretic Peptide (0-100) pg/mL Total Protein 6.4 (6.4-8.2) g/dL Albumin 2.32 L (3.00-4.80) g/dL 10/14/18 10/14/18 10/14/18 Range/Units 07:05 07:09 09:09 WBC (5.00-10.00) 10^3/uL RBC (4.50-6.00) 10^6/uL Hgb (13.0-17.0) g/dL Hct (40.0-52.0) % MCV (82.0-92.0) fL MCH (27.0-31.0) pg MCHC (32.0-36.0) g/dL RDW (11.5-14.5) % Plt Count (150-400) 10^3/uL MPV (7.4-10.4) fL Immature Gran % (Auto) (0.0-5.0) % Neut % (Auto) (50.0-70.0) % Lymph % (Auto) (20.0-40.0) % Hitchcock % (Auto) (2.0-8.0) % Eos % (Auto) (1.0-3.0) % Baso % (Auto) (0.0-1.0) % Immature Gran # (Auto) (0.00-0.50) 10^3/uL Neut # (Auto) (2.50-7.00) 10^3/uL Lymph # (Auto) (1.00-4.00) 10^3/uL Hitchcock # (Auto) (0.10-0.80) 10^3/uL Eos # (Auto) (0.10-0.30) 10^3/uL Baso # (Auto) (0.00-0.10) 10^3/uL Add Manual Diff Neutrophils % (Manual) (50-70) % Band Neutrophils % (4-12) % Lymphocytes % (Manual) (20-40) % Monocytes % (Manual) (2-8) % Absolute Neutrophils Lymphocytes # (Manual) Monocytes # (Manual) PT (8.9-11.4) SEC INR (0.9-1.1) APTT (23.1-31.3) SEC Sodium (136-145) mmol/L Potassium (3.3-5.3) mmol/L Chloride (98-115) mmol/L Carbon Dioxide (21.0-32.0) mmol/L Anion Gap (5-15) mmol/L BUN (6-25) mg/dL Creatinine (0.51-1.17) mg/dL Est Cr Clr Drug Dosing Estimated GFR (MDRD) mL/min Glucose (75 - 99) mg/dL POC Glucose 273 H 300 H (74-106) mg/dl Lactic Acid (0.4-2.0) mmol/L Calcium (8.7-10.3) mg/dL Total Bilirubin (0.2-1.0) mg/dL AST (15-37) U/L ALT (12-78) U/L Alkaline Phosphatase (46-116) IU/L Troponin I 0.08 H* (0.00-0.070) ng/mL C-Reactive Protein (0.0-0.9) mg/dL B-Natriuretic Peptide (0-100) pg/mL Total Protein (6.4-8.2) g/dL Albumin (3.00-4.80) g/dL Kashif Results Last 24 Hours: Microbiology 10/13/18 15:00 Anaerobic Blood Culture - Final Blood - Venous 10/13/18 19:56 Gram Stain - Final Sputum - Expectorated 10/13/18 14:10 Influenza Type A Antigen Screen - Final Nasal Aspirate, Unspecified NEGATIVE INFLUENZA A VIRUS AG Influenza Type B Antigen Screen - Final NEGATIVE INFLUENZA B VIRUS AG Med Orders - Current: Current Medications Acetaminophen (Tylenol) 650 mg PO Q4H PRN PRN Reason: Pain/Fever Last Admin: 10/14/18 05:22 Dose: 650 mg Albuterol/Ipratropium (Duoneb 3.0-0.5 Mg/3 Ml) 3 ml NEB Q4HRRT PRN PRN Reason: Shortness of Breath Last Admin: 10/14/18 03:33 Dose: 3 ml Aspirin (Halfprin) 81 mg PO BRK ROXY Last Admin: 10/14/18 09:06 Dose: 81 mg Ceftriaxone Sodium (Rocephin) 1 gm IVPUSH Q24H ROXY Last Admin: 10/14/18 09:05 Dose: 1 gm Guaifenesin/Phenylephrine HCl (Robitussin Dm) 10 ml PO Q4H PRN PRN Reason: Cough Last Admin: 10/14/18 10:49 Dose: 10 ml Azithromycin 500 mg/ Sodium (Chloride) 250 mls @ 250 mls/hr IV Q24H ROXY Sodium Chloride (Normal Saline) 1,000 mls @ 125 mls/hr IV ASDIRECTED [facility] Last Admin: 10/14/18 10:45 Dose: 125 mls/hr Insulin Human Regular 100 unit (/ Sodium Chloride) 100 mls @ 5 mls/hr IV ASDIRECTED [facility] Last Admin: 10/13/18 22:10 Dose: 5 unit/hr, 5 mls/hr Insulin Aspart (Novolog) 0 unit SUBCUT TIDMEALS [facility]; Protocol Last Admin: 10/14/18 09:11 Dose: 12 units Metoprolol Tartrate (Lopressor) 12.5 mg PO BID [facility] Last Admin: 10/14/18 09:05 Dose: 12.5 mg Nitroglycerin (Nitrostat) 0.4 mg SL ASDIRECTED PRN PRN Reason: Chest Pain Non-Formulary Medication (Loteprednol Etabonate [Lotemax]) 1 drop EYERT BID [facility] Sodium Chloride (Saline Flush) 10 ml FLUSH Q8HR PRN PRN Reason: keep vein open Last Admin: 10/14/18 09:13 Dose: 10 ml Warfarin Sodium (Coumadin) 2.5 mg PO MoWeFr@1800 ROXY Warfarin Sodium (Coumadin) 5 mg PO SuTuThSa@1800 ROXY Last Admin: 10/13/18 20:10 Dose: 5 mg Discontinued Medications Acetaminophen (Tylenol) 650 mg PO NOW ONE Stop: 10/13/18 14:30 Last Admin: 10/13/18 14:33 Dose: 650 mg Ceftriaxone Sodium (Rocephin) 1 gm IVPUSH ONETIME ONE Stop: 10/13/18 15:40 Last Admin: 10/13/18 15:48 Dose: 1 gm Sodium Chloride (Normal Saline) 1,000 mls @ 999 mls/hr IV .BOLUS ONE Stop: 10/13/18 15:11 Last Admin: 10/13/18 14:25 Dose: 999 mls/hr Azithromycin 500 mg/ Sodium (Chloride) 250 mls @ 250 mls/hr IV ONETIME ONE Stop: 10/13/18 16:38 Last Admin: 10/13/18 16:09 Dose: 250 mls/hr Sodium Chloride (Normal Saline) 500 mls @ 999 mls/hr IV .BOLUS ONE Stop: 10/13/18 20:28 Last Admin: 10/13/18 20:18 Dose: 999 mls/hr Sodium Chloride (Normal Saline) 500 mls @ 500 mls/hr IV NOW ONE Stop: 10/13/18 23:44 Last Admin: 10/14/18 08:05 Dose: Not Given Insulin Aspart (Novolog) 5 unit SUBCUT ONETIME ONE Stop: 10/13/18 19:45 Last Admin: 10/13/18 20:14 Dose: 5 units Insulin Detemir (Levemir) 10 unit SUBCUT ONETIME ONE Stop: 10/13/18 19:41 Last Admin: 10/13/18 20:15 Dose: 10 units Insulin Human Regular (Novolin R) 5 unit IV ONETIME ONE; Protocol Stop: 10/13/18 22:25 Last Admin: 10/13/18 22:00 Dose: 5 unit Insulin Human Regular (Novolin R) 5 unit IV ONETIME ONE; Protocol Stop: 10/14/18 02:00 Last Admin: 10/14/18 02:15 Dose: 5 unit Metformin HCl (Glucophage) 500 mg PO ONETIME ONE Stop: 10/13/18 14:57 Last Admin: 10/13/18 15:09 Dose: 500 mg Metoprolol Tartrate (Lopressor) 12.5 mg PO ONETIME ONE Stop: 10/13/18 14:57 Last Admin: 10/13/18 15:09 Dose: 12.5 mg Sodium Chloride (Normal Saline) 500 ml IV ONETIME ONE Stop: 10/13/18 21:46 - Exam Quality Assessment: Supplemental Oxygen General: Alert, Oriented, No Acute Distress Neck: Supple Lungs: Rhonchi Cardiovascular: Irregular Rhythm, Tachycardia GI/Abdominal Exam: Soft (Male) Exam: No Hernia Back Exam: No: CVA Tenderness (L), CVA Tenderness (R) Skin: Other (Diaphoretic) Neurological: No New Focal Deficit Psy/Mental Status: Alert, Normal Affect, Normal Mood. No: Hallucinations - Problem List Review Problem List Initiated/Reviewed/Updated: Yes - My Orders Last 24 Hours: My Active Orders 10/13/18 19:17 Nitroglycerin [Nitrostat] 0.4 mg SL ASDIRECTED PRN 10/13/18 19:28 Intake and Output [RC] 1400,2200,0600 10/13/18 19:30 Sodium Chloride 0.9% [Normal Saline] 1,000 ml IV ASDIRECTED Warfarin [Coumadin] 5 mg PO SuTuThSa@1800 10/13/18 19:45 Accu Check [Blood Glucose Check, Bedside] [RC] TIDAC 10/13/18 19:51 Oxygen Therapy [RC] ASDIRECTED 10/13/18 19:56 RESPIRATORY CULT [MREF] Routine 10/13/18 20:06 Telemetry Monitoring [Cardiac Monitoring] [RC] 0300,0700,1100,1500,1900,2300 10/13/18 21:00 Loteprednol Etabonate [Lotemax] 1 drop EYERT BID Metoprolol Tartrate [Lopressor] 12.5 mg PO BID 10/14/18 00:00 LEGIONELLA ANTIGEN [MREF] Routine 10/14/18 08:00 Aspirin [Halfprin] 81 mg PO BRK Insulin Aspart [NovoLOG] See Protocol SUBCUT TIDMEALS cefTRIAXone [Rocephin] 1 gm IVPUSH Q24H 10/14/18 08:22 EKG Documentation Completion [RC] ASDIRECTED 10/14/18 14:00 Azithromycin [Zithromax] 500 mg Sodium Chloride 0.9% [Normal Saline] 250 ml IV Q24H 10/14/18 18:00 Warfarin [Coumadin] 2.5 mg PO MoWeFr@1800 10/15/18 06:30 CRP [C-REACTIVE PROTEIN] [CHEM] Routine - Plan Plan:: History of present illness Patient has been feeling very poorly past 2-3 days, arived at [facility] and staff noticed his speech was "off" and not clear and was sent to [place] ED via ambulance. Was in his normal state of health up until 3 days ago, sweaty, alter speech, no n/v/d, denied cough, fell and hit his head, states he was unstable, Denies EToh tobacco or any other illicit drugs. Patient has had progressive weakness since the onset of his symptoms. also states on Friday the patient had a new onset speech difficulty in which he had difficulty finding words and speaking. He seemed to improve somewhat but today she has noted that he is unable to express words correctly. She also notes that at times his extremities shake. The patient had a fall on Friday due to his weakness and reportedly hit his head. Denies any head pain although he feels quite dizzy and lightheaded. Update since last night on rounds: Feeling slight better, ongoing significant diaphoresis, place on insulin drip last night with some improvement in blood glucose Primary diagnosis Pneumonia, right lung base, CAP, Sepsis, qSOFA 1/3, Bacteremia with sepsis Hyponatremia, hypotonic, improving ZHENG, likely prerenal, BUN/creatinine ratio greater >30 Dehydration, Elevated cardio-biomarkers, Likely type II however with history we'll monitor very carefully, repeat troponin this afternoon HFpEF, at 50%, diastolic, echocardiogram March 2018, T2DM newly uncontrollable likely secondary to infection, insulin for now, hemoglobin A1c December 2017 6.5%, consider GLP-1a, metformin Atrial flutter, paroxysmal, [id number] score 5, anticoagulation, lineant rate control with metoprolol Chronic problems S/P CABG x 3 S/P mitral valve annuloplasty HLD, statin therapy, HTN, Konrad inhibition, metoprolol tartrate CAD, DAPT with ASA, DAPT score? Disposition, cont with acute care possibly ICU, fluids, insulin, monitor for signs of septic shock, Monitor for any returning altered mental status, continue antibiotics azithromycin and Rocephin, oxygen to keep oxygen greater than 94%, repeat troponin this afternoon, hold metformin, monitor for any instability, telemetry. ICS, Labs in a.m. Monitor very carefully.
[2018-10-14] MEDS ORDERED: EPINEPHrine 1:10,000 1 MG/10 ML Syringe IVPUSH PRN (13:17)
[2018-10-14] MEDS ORDERED: Lidocaine 2% 100 MG/5 ML Syringe IVPUSH PRN (13:17)
[2018-10-14] MEDS ORDERED: Atropine 0.1 MG/ML 10 ML Syringe IVPUSH PRN (13:17)
[2018-10-14] MEDS ORDERED: Nitroglycerin 0.4 MG Tab.SL SL PRN (13:17)
[2018-10-14] MEDS: Azithromycin 500 MG in Sodium Chloride 0.9% 250 ML IV SCH (13:50)
[2018-10-14] MEDS ORDERED: Sodium Chloride 0.9% 400 ML IV ONE (16:39)
[2018-10-14] MEDS ORDERED: Warfarin 2.5 MG Tab PO SCH (18:00)
[2018-10-15] MEDS: Sodium Chloride 0.9% 1,000 ML IV SCH ×2 (01:20→12:42)
[2018-10-15 08:11] LABS: ANION GAP 20.3 mmol/L (5-15)
[2018-10-15] MEDS: Aspirin 81 MG Tab.EC PO SCH (09:46)
[2018-10-15] MEDS: Metoprolol Tartrate 25 MG Tab PO SCH ×2 (09:46→21:46)
[2018-10-15] MEDS: cefTRIAXone 1 GM Vial IVPUSH SCH (09:48)
[2018-10-15] MEDS: guaiFENesin/Dextromethorphan 100-10 MG/5 ML Soln 5 ML Cup PO PRN ×3 (09:50→21:48)
[2018-10-15] MEDS: Sodium Chloride 0.9% 10 ML Syringe FLUSH PRN (09:56)
[2018-10-15] MEDS: Insulin Aspart 100 Units/ML 3 ML Pen SUBCUT SCH ×3 (09:59→18:26)
--- NOTE | 2018-10-15 10:08 | PCM.PN ---
- General Info Date of Service: 10/15/18 Functional Status: Reports: Pain Controlled, Tolerating Diet, Urinating, Incentive Spirometry. Denies: New Symptoms - Review of Systems General: Reports: Night Sweats. Denies: Fever, Weakness, Chills HEENT: Reports: No Symptoms Pulmonary: Reports: Cough, Sputum Cardiovascular: Denies: Palpitations Gastrointestinal: Reports: No Symptoms Genitourinary: Reports: No Symptoms Musculoskeletal: Reports: No Symptoms Skin: Reports: Diaphoresis Neurological: Denies: Confusion, Dizziness, Headache, Paresthesia, Syncope, Change in Speech Psychiatric: Reports: No Symptoms - Patient Data Vitals - Most Recent: Last Vital Signs Temp 96.1 F 10/15/18 06:16 Pulse 121 H 10/15/18 06:16 Resp 32 H 10/15/18 06:16 BP 119/76 10/15/18 06:16 Pulse Ox 92 L 10/15/18 06:16 Weight - Most Recent: 200 lb 11.2 oz I&O - Last 24 Hours: Intake & Output 10/14/18 10/15/18 10/15/18 22:59 06:59 14:59 Intake Total 2006 1450 Output Total 1599 2049 Balance 407 -599 Lab Results Last 24 Hours: Laboratory Results - last 24 hr 10/14/18 10/14/18 10/14/18 Range/Units 11:52 16:12 17:34 WBC (5.00-10.00) 10^3/uL RBC (4.50-6.00) 10^6/uL Hgb (13.0-17.0) g/dL Hct (40.0-52.0) % MCV (82.0-92.0) fL MCH (27.0-31.0) pg MCHC (32.0-36.0) g/dL RDW (11.5-14.5) % Plt Count (150-400) 10^3/uL MPV (7.4-10.4) fL Immature Gran % (Auto) (0.0-5.0) % Neut % (Auto) (50.0-70.0) % Lymph % (Auto) (20.0-40.0) % Callahan % (Auto) (2.0-8.0) % Eos % (Auto) (1.0-3.0) % Baso % (Auto) (0.0-1.0) % Immature Gran # (Auto) (0.00-0.50) 10^3/uL Neut # (Auto) (2.50-7.00) 10^3/uL Lymph # (Auto) (1.00-4.00) 10^3/uL Callahan # (Auto) (0.10-0.80) 10^3/uL Eos # (Auto) (0.10-0.30) 10^3/uL Baso # (Auto) (0.00-0.10) 10^3/uL Atypical Lymphocytes Norman Cells PT (8.9-11.4) SEC INR (0.9-1.1) Sodium (136-145) mmol/L Potassium (3.3-5.3) mmol/L Chloride (98-115) mmol/L Carbon Dioxide (21.0-32.0) mmol/L Anion Gap (5-15) mmol/L BUN (6-25) mg/dL Creatinine (0.51-1.17) mg/dL Est Cr Clr Drug Dosing mL/min Estimated GFR (MDRD) mL/min Glucose (75 - 99) mg/dL POC Glucose 306 H 138 H (74-106) mg/dl Calcium (8.7-10.3) mg/dL Troponin I 0.04 (0.00-0.070) ng/mL C-Reactive Protein (0.0-0.9) mg/dL 10/15/18 10/15/18 10/15/18 Range/Units 06:49 07:20 07:20 WBC 7.79 (5.00-10.00) 10^3/uL RBC 4.16 L (4.50-6.00) 10^6/uL Hgb 11.0 L (13.0-17.0) g/dL Hct 33.0 L (40.0-52.0) % MCV 79.3 L (82.0-92.0) fL MCH 26.4 L (27.0-31.0) pg MCHC 33.3 (32.0-36.0) g/dL RDW 16.4 H (11.5-14.5) % Plt Count 162 (150-400) 10^3/uL MPV 11.5 H (7.4-10.4) fL Immature Gran % (Auto) 2.7 (0.0-5.0) % Neut % (Auto) 75.1 H (50.0-70.0) % Lymph % (Auto) 7.3 L (20.0-40.0) % Callahan % (Auto) 13.6 H (2.0-8.0) % Eos % (Auto) 1.0 (1.0-3.0) % Baso % (Auto) 0.3 (0.0-1.0) % Immature Gran # (Auto) 0.21 (0.00-0.50) 10^3/uL Neut # (Auto) 5.85 (2.50-7.00) 10^3/uL Lymph # (Auto) 0.57 L (1.00-4.00) 10^3/uL Callahan # (Auto) 1.06 H (0.10-0.80) 10^3/uL Eos # (Auto) 0.08 L (0.10-0.30) 10^3/uL Baso # (Auto) 0.02 (0.00-0.10) 10^3/uL Atypical Lymphocytes Occasional Norman Cells 3+ marked PT (8.9-11.4) SEC INR (0.9-1.1) Sodium (136-145) mmol/L Potassium (3.3-5.3) mmol/L Chloride (98-115) mmol/L Carbon Dioxide (21.0-32.0) mmol/L Anion Gap (5-15) mmol/L BUN (6-25) mg/dL Creatinine (0.51-1.17) mg/dL Est Cr Clr Drug Dosing mL/min Estimated GFR (MDRD) mL/min Glucose (75 - 99) mg/dL POC Glucose 211 H (74-106) mg/dl Calcium (8.7-10.3) mg/dL Troponin I (0.00-0.070) ng/mL C-Reactive Protein 22.4 H (0.0-0.9) mg/dL 10/15/18 10/15/18 Range/Units 07:20 07:20 WBC (5.00-10.00) 10^3/uL RBC (4.50-6.00) 10^6/uL Hgb (13.0-17.0) g/dL Hct (40.0-52.0) % MCV (82.0-92.0) fL MCH (27.0-31.0) pg MCHC (32.0-36.0) g/dL RDW (11.5-14.5) % Plt Count (150-400) 10^3/uL MPV (7.4-10.4) fL Immature Gran % (Auto) (0.0-5.0) % Neut % (Auto) (50.0-70.0) % Lymph % (Auto) (20.0-40.0) % Callahan % (Auto) (2.0-8.0) % Eos % (Auto) (1.0-3.0) % Baso % (Auto) (0.0-1.0) % Immature Gran # (Auto) (0.00-0.50) 10^3/uL Neut # (Auto) (2.50-7.00) 10^3/uL Lymph # (Auto) (1.00-4.00) 10^3/uL Callahan # (Auto) (0.10-0.80) 10^3/uL Eos # (Auto) (0.10-0.30) 10^3/uL Baso # (Auto) (0.00-0.10) 10^3/uL Atypical Lymphocytes Norman Cells PT 34.7 H D (8.9-11.4) SEC INR 3.5 H (0.9-1.1) Sodium 139 D (136-145) mmol/L Potassium 4.1 (3.3-5.3) mmol/L Chloride 105 (98-115) mmol/L Carbon Dioxide 17.8 L (21.0-32.0) mmol/L Anion Gap 20.3 H (5-15) mmol/L BUN 61 H* D (6-25) mg/dL Creatinine 1.44 H D (0.51-1.17) mg/dL Est Cr Clr Drug Dosing 56.13 mL/min Estimated GFR (MDRD) 49 mL/min Glucose 214 H (75 - 99) mg/dL POC Glucose (74-106) mg/dl Calcium 8.2 L (8.7-10.3) mg/dL Troponin I (0.00-0.070) ng/mL C-Reactive Protein (0.0-0.9) mg/dL Kashif Results Last 24 Hours: Microbiology 10/13/18 14:52 Bacterial Identification - Preliminary Blood - Arm, Right Gram Positive Cocci 10/13/18 19:56 Gram Stain - Final Sputum - Expectorated 10/13/18 15:00 Aerobic Blood Culture - Preliminary Blood - Venous NO GROWTH AFTER 1 DAY Anaerobic Blood Culture - Final 10/13/18 15:00 Aerobic Blood Culture - Preliminary Blood - Venous - Lab Draw NO GROWTH AFTER 1 DAY Anaerobic Blood Culture - Preliminary NO GROWTH AFTER 1 DAY Med Orders - Current: Current Medications Acetaminophen (Tylenol) 650 mg PO Q4H PRN PRN Reason: Pain/Fever Last Admin: 10/14/18 05:22 Dose: 650 mg Albuterol/Ipratropium (Duoneb 3.0-0.5 Mg/3 Ml) 3 ml NEB Q4HRRT PRN PRN Reason: Shortness of Breath Last Admin: 10/14/18 03:33 Dose: 3 ml Aspirin (Halfprin) 81 mg PO BRK [facility] Last Admin: 10/14/18 09:06 Dose: 81 mg Atropine Sulfate (Atropine 0.1 Mg/Ml) 0 mg IVPUSH ASDIRECTED PRN PRN Reason: Heart Ceftriaxone Sodium (Rocephin) 1 gm IVPUSH Q24H [facility] Last Admin: 10/14/18 09:05 Dose: 1 gm Epinephrine HCl (Epinephrine 1:10,000) 1 mg IVPUSH ASDIRECTED PRN PRN Reason: Heart Guaifenesin/Phenylephrine HCl (Robitussin Dm) 10 ml PO Q4H PRN PRN Reason: Cough Last Admin: 10/14/18 20:19 Dose: 10 ml Azithromycin 500 mg/ Sodium (Chloride) 250 mls @ 250 mls/hr IV Q24H [facility] Last Admin: 10/14/18 13:50 Dose: 250 mls/hr Insulin Human Regular 100 unit (/ Sodium Chloride) 100 mls @ 5 mls/hr IV ASDIRECTED [facility] Last Admin: 10/13/18 22:10 Dose: 5 unit/hr, 5 mls/hr Sodium Chloride (Normal Saline) 1,000 mls @ [facility] Last Admin: 10/15/18 01:20 Dose: 100 mls/hr Insulin Aspart (Novolog) 0 unit SUBCUT TIDMEALS [facility]; Protocol Last Admin: 10/14/18 18:24 Dose: Not Given Lidocaine HCl (Xylocaine 2%) 0 mg IVPUSH ASDIRECTED PRN PRN Reason: Heart Metoprolol Tartrate (Lopressor) 12.5 mg PO BID [facility] Last Admin: 10/14/18 20:20 Dose: 12.5 mg Nitroglycerin (Nitrostat) 0.4 mg SL ASDIRECTED PRN PRN Reason: Chest Pain Nitroglycerin (Nitrostat) 0.4 mg SL ASDIRECTED PRN PRN Reason: Heart Non-Formulary Medication (Loteprednol Etabonate [Lotemax]) 1 drop EYERT BID [facility] Sodium Chloride (Saline Flush) 10 ml FLUSH Q8HR PRN PRN Reason: keep vein open Last Admin: 10/14/18 09:13 Dose: 10 ml Warfarin Sodium (Coumadin) 2.5 mg PO [email or web address] [facility] Last Admin: 10/14/18 17:59 Dose: 2.5 mg Warfarin Sodium (Coumadin) 5 mg PO [email or web address] [facility] Last Admin: 10/13/18 20:10 Dose: 5 mg Discontinued Medications Acetaminophen (Tylenol) 650 mg PO NOW ONE Stop: 10/13/18 14:30 Last Admin: 10/13/18 14:33 Dose: 650 mg Ceftriaxone Sodium (Rocephin) 1 gm IVPUSH ONETIME ONE Stop: 10/13/18 15:40 Last Admin: 10/13/18 15:48 Dose: 1 gm Sodium Chloride (Normal Saline) 1,000 mls @ 999 mls/hr IV .BOLUS ONE Stop: 10/13/18 15:11 Last Admin: 10/13/18 14:25 Dose: 999 mls/hr Azithromycin 500 mg/ Sodium (Chloride) 250 mls @ 250 mls/hr IV ONETIME ONE Stop: 10/13/18 16:38 Last Admin: 10/13/18 16:09 Dose: 250 mls/hr Sodium Chloride (Normal Saline) 1,000 mls @ 125 mls/hr IV ASDIRECTED [facility] Last Admin: 10/14/18 10:45 Dose: 125 mls/hr Sodium Chloride (Normal Saline) 500 mls @ 999 mls/hr IV .BOLUS ONE Stop: 10/13/18 20:28 Last Admin: 10/13/18 20:18 Dose: 999 mls/hr Sodium Chloride (Normal Saline) 500 mls @ 500 mls/hr IV NOW ONE Stop: 10/13/18 23:44 Last Admin: 10/14/18 08:05 Dose: Not Given Sodium Chloride (Normal Saline) 400 mls @ 999 mls/hr IV .BOLUS ONE Stop: 10/14/18 17:03 Last Admin: 10/14/18 17:30 Dose: 999 mls/hr Insulin Aspart (Novolog) 5 unit SUBCUT ONETIME ONE Stop: 10/13/18 19:45 Last Admin: 10/13/18 20:14 Dose: 5 units Insulin Detemir (Levemir) 10 unit SUBCUT ONETIME ONE Stop: 10/13/18 19:41 Last Admin: 10/13/18 20:15 Dose: 10 units Insulin Human Regular (Novolin R) 5 unit IV ONETIME ONE; Protocol Stop: 10/13/18 22:25 Last Admin: 10/13/18 22:00 Dose: 5 unit Insulin Human Regular (Novolin R) 5 unit IV ONETIME ONE; Protocol Stop: 10/14/18 02:00 Last Admin: 10/14/18 02:15 Dose: 5 unit Metformin HCl (Glucophage) 500 mg PO ONETIME ONE Stop: 10/13/18 14:57 Last Admin: 10/13/18 15:09 Dose: 500 mg Metoprolol Tartrate (Lopressor) 12.5 mg PO ONETIME ONE Stop: 10/13/18 14:57 Last Admin: 10/13/18 15:09 Dose: 12.5 mg Sodium Chloride (Normal Saline) 500 ml IV ONETIME ONE Stop: 10/13/18 21:46 Last Admin: 10/14/18 11:16 Dose: Not Given - Exam Quality Assessment: Supplemental Oxygen General: Alert, Oriented, Cooperative Neck: Supple Lungs: Rhonchi Cardiovascular: Irregular Rhythm, Tachycardia GI/Abdominal Exam: Soft (Male) Exam: Deferred Back Exam: No: CVA Tenderness (L), CVA Tenderness (R) Extremities: No: Pedal Edema Skin: Cool, Moist Neurological: No New Focal Deficit Psy/Mental Status: Alert, Normal Affect, Normal Mood - Problem List Review Problem List Initiated/Reviewed/Updated: Yes - My Orders Last 24 Hours: My Active Orders 10/14/18 11:15 Incentive Spirometry [RT Incentive Spirometry] [RC] Q1HWA Sodium Chloride 0.9% [Normal Saline] 1,000 ml IV ASDIRECTED 10/14/18 13:17 Atropine [Atropine 0.1 MG/ML] 0 mg IVPUSH ASDIRECTED PRN EPINEPHrine [EPINEPHrine 1:10,000] 1 mg IVPUSH ASDIRECTED PRN Lidocaine 2% [Xylocaine 2%] 0 mg IVPUSH ASDIRECTED PRN Nitroglycerin [Nitrostat] 0.4 mg SL ASDIRECTED PRN 10/14/18 14:00 Azithromycin [Zithromax] 500 mg Sodium Chloride 0.9% [Normal Saline] 250 ml IV Q24H 10/14/18 18:00 Warfarin [Coumadin] 2.5 mg PO MoWeFr@1800 - Plan Plan:: History of present illness Patient has been feeling very poorly past 2-3 days, arived at [facility] and staff noticed his speech was "off" and not clear and was sent to [place] ED via ambulance. Was in his normal state of health up until 3 days ago, sweaty, alter speech, no n/v/d, denied cough, fell and hit his head, states he was unstable, Denies EToh tobacco or any other illicit drugs. Patient has had progressive weakness since the onset of his symptoms. also states on Friday the patient had a new onset speech difficulty in which he had difficulty finding words and speaking. He seemed to improve somewhat but today she has noted that he is unable to express words correctly. She also notes that at times his extremities shake. The patient had a fall on Friday due to his weakness and reportedly hit his head. Denies any head pain although he feels quite dizzy and lightheaded. Update: Coughing up blood-tinged sputum, no fever, no altered mental status, blood pressure improved from yesterday after gentle IV fluid resuscitation, vital signs now stable, appears clinically improving, RR remains elevated with continued oxygen requirements. White count improving. Glucose improving, renal indices improving Primary diagnosis Pneumonia, right lung base, CAP, Sepsis, qSOFA 1/3, Bacteremia with sepsis Hyponatremia, now normalized ZHENG, likely prerenal, BUN/creatinine ratio improving Elevated INR, hold Coumadin tonight Dehydration, profound on admission, improving Elevated cardio-biomarkers, no normalized Likely type II however with history we 'll monitor very carefully, HFpEF, at 50%, diastolic, echocardiogram March 2018, monitor optimized hydration status and fluid de-escalation T2DM newly uncontrollable likely secondary to infection, insulin for now, hemoglobin A1c December 2017 6.5%, holding metformin Atrial flutter, paroxysmal, [id number] score 5, anticoagulation, lineant rate control with metoprolol Chronic problems S/P CABG x 3 S/P mitral valve annuloplasty HLD, statin therapy, HTN, Konrad inhibition, metoprolol tartrate CAD, DAPT with ASA, DAPT score? Disposition, cont with acute care, fluids, insulin, monitor for signs of septic shock, Monitor for any returning altered mental status, continue antibiotics azithromycin and Rocephin, oxygen to keep oxygen greater than 94%, hold metformin, monitor for any instability, telemetry. ICS, Labs in a.m. repeat chest x-ray today however seems to be responding to current treatment.
[2018-10-15] MEDS: guaiFENesin 600 MG Tab.ER PO SCH ×2 (11:13→21:44)
[2018-10-15] MEDS: Albuterol/Ipratropium 3.0-0.5 MG/3 ML Neb Soln NEB PRN (11:13)
[2018-10-15] MEDS: Azithromycin 500 MG in Sodium Chloride 0.9% 250 ML IV SCH (13:44)
[2018-10-15] MEDS: Loteprednol Etabonate [Lotemax] EYERT SCH ×4 (16:47→21:50)
[2018-10-15] MEDS: Sodium Chloride 0.9% 250 ML IV SCH (23:48)
[2018-10-16] MEDS: Sodium Chloride 0.9% 250 ML IV SCH (03:50)
[2018-10-16 07:34] LABS: ANION GAP 21.5 mmol/L (5-15); CHLORIDE,CL 104 mmol/L (98-115); SODIUM,NA 139 mmol/L (136-145)
[2018-10-16] MEDS ORDERED: Sodium Chloride 0.9% 1,000 ML IV SCH (07:45)
[2018-10-16] MEDS: Insulin Aspart 100 Units/ML 3 ML Pen SUBCUT SCH ×3 (08:04→18:00)
[2018-10-16] MEDS: Metoprolol Tartrate 25 MG Tab PO SCH ×2 (08:49→20:07)
[2018-10-16] MEDS: cefTRIAXone 1 GM Vial IVPUSH SCH (08:50)
[2018-10-16] MEDS: Aspirin 81 MG Tab.EC PO SCH (08:50)
[2018-10-16] MEDS: guaiFENesin 600 MG Tab.ER PO SCH ×2 (08:50→20:08)
[2018-10-16] MEDS: Loteprednol Etabonate [Lotemax] EYERT SCH ×2 (08:50→22:52)
[2018-10-16] MEDS: guaiFENesin/Dextromethorphan 100-10 MG/5 ML Soln 5 ML Cup PO PRN ×2 (12:25→20:09)
[2018-10-16] MEDS: Azithromycin 500 MG in Sodium Chloride 0.9% 250 ML IV SCH (14:44)
[2018-10-16] MEDS: Sodium Chloride 0.9% 50 ML IV SCH (16:03)
[2018-10-17] MEDS: guaiFENesin/Dextromethorphan 100-10 MG/5 ML Soln 5 ML Cup PO PRN ×3 (00:10→20:50)
[2018-10-17] MEDS: Albuterol/Ipratropium 3.0-0.5 MG/3 ML Neb Soln NEB PRN (04:17)
[2018-10-17] MEDS: guaiFENesin 600 MG Tab.ER PO SCH ×2 (08:10→20:49)
[2018-10-17] MEDS: Metoprolol Tartrate 25 MG Tab PO SCH ×2 (08:10→20:49)
[2018-10-17] MEDS: Aspirin 81 MG Tab.EC PO SCH (08:10)
[2018-10-17] MEDS: Insulin Aspart 100 Units/ML 3 ML Pen SUBCUT SCH ×3 (08:10→18:12)
[2018-10-17] MEDS: Sodium Chloride 0.9% 10 ML Syringe FLUSH PRN (08:11)
[2018-10-17] MEDS: cefTRIAXone 1 GM Vial IVPUSH SCH (08:55)
[2018-10-17] MEDS: Loteprednol Etabonate [Lotemax] EYERT SCH ×2 (10:20→20:53)
[2018-10-17] MEDS ORDERED: Phytonadione 1 MG/0.5 ML Syringe PO ONE (11:07)
--- NOTE | 2018-10-17 13:11 | PCM.PN ---
- General Info Date of Service: 10/17/18 Admission Dx/Problem (Free Text): Admission Diagnosis/Problem Admission Diagnosis/Problem Pneumonia - Review of Systems General: Reports: Weakness, Fatigue, Other (diaphoresis, scant hemoptysis, one nasal blood clot.). Denies: Fever HEENT: Reports: Glasses Pulmonary: Reports: Shortness of Breath, Cough Cardiovascular: Reports: Dyspnea on Exertion. Denies: Chest Pain Gastrointestinal: Reports: Decreased Appetite, Other (early sateity, abdominal distension) Genitourinary: Reports: Frequency Skin: Reports: No Symptoms Neurological: Reports: No Symptoms Psychiatric: Reports: No Symptoms - Patient Data Vitals - Most Recent: Last Vital Signs Temp 98.2 F 10/17/18 06:46 Pulse 86 10/17/18 08:10 Resp 20 10/17/18 06:46 BP 136/77 10/17/18 08:10 Pulse Ox 92 L 10/17/18 06:46 Weight - Most Recent: 200 lb 11.2 oz I&O - Last 24 Hours: Intake & Output 10/16/18 10/17/18 10/17/18 22:59 06:59 14:59 Intake Total 550 600 Balance 550 600 Lab Results Last 24 Hours: Laboratory Results - last 24 hr 10/16/18 10/17/18 10/17/18 Range/Units 17:42 07:47 08:44 PT TNP INR 5.5 H* (0.9-1.1) POC Glucose 246 H 263 H (74-106) mg/dl B-Natriuretic Peptide (0-100) pg/mL 10/17/18 10/17/18 Range/Units 11:05 11:57 PT INR (0.9-1.1) POC Glucose 309 H (74-106) mg/dl B-Natriuretic Peptide 698 H (0-100) pg/mL Kashif Results Last 24 Hours: Microbiology 10/13/18 15:00 Aerobic Blood Culture - Preliminary Blood - Venous NO GROWTH AFTER 3 DAYS Anaerobic Blood Culture - Final 10/13/18 15:00 Aerobic Blood Culture - Preliminary Blood - Venous - Lab Draw NO GROWTH AFTER 3 DAYS Anaerobic Blood Culture - Preliminary NO GROWTH AFTER 3 DAYS 10/13/18 14:52 Bacterial Identification - Preliminary Blood - Arm, Right Streptococcus Pneumoniae Med Orders - Current: Current Medications Acetaminophen (Tylenol) 650 mg PO Q4H PRN PRN Reason: Pain/Fever Last Admin: 10/14/18 05:22 Dose: 650 mg Albuterol/Ipratropium (Duoneb 3.0-0.5 Mg/3 Ml) 3 ml NEB Q4HRRT PRN PRN Reason: Shortness of Breath Last Admin: 10/17/18 04:17 Dose: 3 ml Aspirin (Halfprin) 81 mg PO BRK [facility] Last Admin: 10/17/18 08:10 Dose: 81 mg Benzonatate (Tessalon Perles) 100 mg PO QID PRN PRN Reason: Cough Ceftriaxone Sodium (Rocephin) 1 gm IVPUSH Q24H [facility] Last Admin: 10/17/18 08:55 Dose: 1 gm Guaifenesin (Mucinex) 600 mg PO BID [facility] Last Admin: 10/17/18 08:10 Dose: 600 mg Guaifenesin/Phenylephrine HCl (Robitussin Dm) 10 ml PO Q4H PRN PRN Reason: Cough Last Admin: 10/17/18 04:12 Dose: 10 ml Azithromycin 500 mg/ Sodium (Chloride) 250 mls @ 250 mls/hr IV Q24H [facility] Last Admin: 10/16/18 14:44 Dose: 250 mls/hr Sodium Chloride (Normal Saline) 50 mls @ 100 mls/hr IV ASDIRECTED [facility] Last Admin: 10/16/18 16:03 Dose: 100 mls/hr Insulin Aspart (Novolog) 0 unit SUBCUT TIDMEALS [facility]; Protocol Last Admin: 10/17/18 12:32 Dose: 12 units Metoprolol Tartrate (Lopressor) 12.5 mg PO BID [facility] Last Admin: 10/17/18 08:10 Dose: 12.5 mg Nitroglycerin (Nitrostat) 0.4 mg SL ASDIRECTED PRN PRN Reason: Chest Pain Loteprednol (Etabonate [Lotemax]) 1 each EYERT BID [facility] Last Admin: 10/17/18 10:20 Dose: 1 each Sodium Chloride (Saline Flush) 10 ml FLUSH Q8HR PRN PRN Reason: keep vein open Last Admin: 10/17/18 08:11 Dose: 10 ml Warfarin Sodium (Coumadin) 2.5 mg PO MoWeFr@1800 [facility] Last Admin: 10/14/18 17:59 Dose: 2.5 mg Warfarin Sodium (Coumadin) 5 mg PO SuTuThSa@1800 [facility] Last Admin: 10/13/18 20:10 Dose: 5 mg Warfarin Sodium (Pharmacy To Dose - Warfarin) 1 dose PO ASDIRECTED [facility] Discontinued Medications Acetaminophen (Tylenol) 650 mg PO NOW ONE Stop: 10/13/18 14:30 Last Admin: 10/13/18 14:33 Dose: 650 mg Atropine Sulfate (Atropine 0.1 Mg/Ml) 0 mg IVPUSH ASDIRECTED PRN PRN Reason: Heart Ceftriaxone Sodium (Rocephin) 1 gm IVPUSH ONETIME ONE Stop: 10/13/18 15:40 Last Admin: 10/13/18 15:48 Dose: 1 gm Epinephrine HCl (Epinephrine 1:10,000) 1 mg IVPUSH ASDIRECTED PRN PRN Reason: Heart Sodium Chloride (Normal Saline) 1,000 mls @ 999 mls/hr IV .BOLUS ONE Stop: 10/13/18 15:11 Last Admin: 10/13/18 14:25 Dose: 999 mls/hr Azithromycin 500 mg/ Sodium (Chloride) 250 mls @ 250 mls/hr IV ONETIME ONE Stop: 10/13/18 16:38 Last Admin: 10/13/18 16:09 Dose: 250 mls/hr Sodium Chloride (Normal Saline) 1,000 mls @ [facility] Last Admin: 10/14/18 10:45 Dose: 125 mls/hr Sodium Chloride (Normal Saline) 500 mls @ 999 mls/hr IV .BOLUS ONE Stop: 10/13/18 20:28 Last Admin: 10/13/18 20:18 Dose: 999 mls/hr Insulin Human Regular 100 unit (/ Sodium Chloride) 100 mls @ 5 [facility]ls[facility] Last Admin: 10/13/18 22:10 Dose: 5 unit/hr, 5 mls/hr Sodium Chloride (Normal Saline) 500 mls @ 500 mls/hr IV NOW ONE Stop: 10/13/18 23:44 Last Admin: 10/14/18 08:05 Dose: Not Given Sodium Chloride (Normal Saline) 1,000 mls @ 100 [facility]ls[facility]hr [facility] Last Admin: 10/15/18 12:42 Dose: 100 mls/hr Sodium Chloride (Normal Saline) 400 mls @ 999 mls/hr IV .BOLUS ONE Stop: 10/14/18 17:03 Last Admin: 10/14/18 17:30 Dose: 999 mls/hr Sodium Chloride (Normal Saline) 250 mls @ 70 mls/hr IV ASDIRECTED [facility] Last Admin: 10/16/18 03:50 Dose: 70 mls/hr Sodium Chloride (Normal Saline) 1,000 mls @ 70 mls/hr IV ASDIRECTED [facility] Insulin Aspart (Novolog) 5 unit SUBCUT ONETIME ONE Stop: 10/13/18 19:45 Last Admin: 10/13/18 20:14 Dose: 5 units Insulin Detemir (Levemir) 10 unit SUBCUT ONETIME ONE Stop: 10/13/18 19:41 Last Admin: 10/13/18 20:15 Dose: 10 units Insulin Human Regular (Novolin R) 5 unit IV ONETIME ONE; Protocol Stop: 10/13/18 22:25 Last Admin: 10/13/18 22:00 Dose: 5 unit Insulin Human Regular (Novolin R) 5 unit IV ONETIME ONE; Protocol Stop: 10/14/18 02:00 Last Admin: 10/14/18 02:15 Dose: 5 unit Lidocaine HCl (Xylocaine 2%) 0 mg IVPUSH ASDIRECTED PRN PRN Reason: Heart Metformin HCl (Glucophage) 500 mg PO ONETIME ONE Stop: 10/13/18 14:57 Last Admin: 10/13/18 15:09 Dose: 500 mg Metoprolol Tartrate (Lopressor) 12.5 mg PO ONETIME ONE Stop: 10/13/18 14:57 Last Admin: 10/13/18 15:09 Dose: 12.5 mg Nitroglycerin (Nitrostat) 0.4 mg SL ASDIRECTED PRN PRN Reason: Heart Phytonadione (Aquamephyton) 2.5 mg PO ONETIME ONE Stop: 10/17/18 11:08 Phytonadione (Aquamephyton) 2.5 mg PO ONETIME ONE Stop: 10/17/18 12:31 Last Admin: 10/17/18 12:50 Dose: 2.5 mg Sodium Chloride (Normal Saline) 500 ml IV ONETIME ONE Stop: 10/13/18 21:46 Last Admin: 10/14/18 11:16 Dose: Not Given - Exam Quality Assessment: No: Supplemental Oxygen (He has maintained O2 sats > 90 for 24 hours off of supplemental oxygen) General: Alert, Oriented Lungs: Other (generalized congestion throughout without wheezes. Short of breath with talking.) Cardiovascular: Tachycardia (heart rate 104) GI/Abdominal Exam: Normal Bowel Sounds, Soft, Non-Tender, Distended (Male) Exam: Deferred Extremities: No Pedal Edema Skin: Warm, Dry, Intact Neurological: No New Focal Deficit Psy/Mental Status: Alert, Normal Affect - Problem List Review Problem List Initiated/Reviewed/Updated: Yes - My Orders Last 24 Hours: My Active Orders 10/17/18 11:10 Benzonatate [Tessalon Perles] 100 mg PO QID PRN 10/17/18 13:02 Dietary Supplements [RC] BIDAC 10/17/18 13:04 Weight Daily [Height and Weight] [RC] DAILY 10/18/18 05:00 BASIC METABOLIC PANEL,BMP [CHEM] Routine C-REACTIVE PROTEIN [CHEM] Routine CBC WITH AUTO DIFF [HEME] Routine 10/18/18 06:00 INR,PT,PROTHROMBIN TIME [COAG] Routine - Plan Plan:: History of present illness Patient had been feeling very poorly for 3-4 days prior to presenting to a [place] clinic and staff noticed his speech was "off" and not clear and was sent to [place] ED via ambulance. Pt had been in his normal state of health up until 3 - 4 days before admission. Prior to admission he was sweaty, altered speech, no n/v/d, denied cough. He did fall and hit his head, states he was unstable, Denies ETOH, tobacco or any other illicit drugs. Patient has had progressive weakness since the onset of his symptoms. also states on Friday the patient had a new onset speech difficulty in which he had difficulty finding words and speaking. He seemed to improve somewhat but on admission she had noted that he was unable to express words correctly. Pt has also reported for about the last year he has noticed intentional tremors. Pt was admitted with Pneumonia, right lung base, CAP, Sepsis, Type 2 diabetes mellitus, history of atrial flutter, paroxysmal atrial fib, s/p mitral valve repair for which he is on anticoagulation. Primary diagnosis Pneumonia, right lung base, CAP, Sepsis: improving clinically per pt report. Will use O2 prn to keep O2 sats > 94%. Continue on Azithromycin and Rocephin IV , duonebs qid prn, mucinex bid. Add tessalon Perles for cough. Will repeat CBC , BMP, CRP tomorrow. T2DM uncontrolled, on Novolog sliding scale tid with meals. His blood sugars have been high at 240-309. Will continue with sliding scale insulin during this illness and daily changing status Continue on insulin for now, consider basal insulin and GLP-1a, Atrial flutter, paroxysmal, [id number] score 5, anticoagulation, rate control with metoprolol. BNP was elevated at 309 today. Will check BMP tomorrow and consider lasix use. Chronic anticoagulation: INR continues to be high at 5.5 today in spite of coumadin held for the last 2 nights. Will give vitamin K 2.5 mg as he is having some hemoptysis and scan nasal bleeding. Chronic problems S/P CABG x 3 S/P mitral valve annuloplasty HLD, statin therapy, HTN, Konrad inhibition, metoprolol tartrate CAD, DAPT with ASA, DAPT score?
[2018-10-17] MEDS: Azithromycin 500 MG in Sodium Chloride 0.9% 250 ML IV SCH (14:46)
[2018-10-17] MEDS: Benzonatate 100 MG Cap PO PRN (18:12)
[2018-10-18] MEDS: Benzonatate 100 MG Cap PO PRN (00:33)
[2018-10-18] MEDS: guaiFENesin/Dextromethorphan 100-10 MG/5 ML Soln 5 ML Cup PO PRN (02:18)
[2018-10-18 07:57] LABS: CHLORIDE,CL 101 mmol/L (98-115); SODIUM,NA 136 mmol/L (136-145)
[2018-10-18] MEDS: Insulin Aspart 100 Units/ML 3 ML Pen SUBCUT SCH ×3 (08:07→17:58)
--- NOTE | 2018-10-18 09:04 | PCM.PN ---
- General Info Date of Service: 10/18/18 Admission Dx/Problem (Free Text): Admission Diagnosis/Problem Admission Diagnosis/Problem Pneumonia Functional Status: Reports: Pain Controlled, Tolerating Diet, Ambulating - Review of Systems General: Reports: Fatigue Pulmonary: Reports: Shortness of Breath, Cough Cardiovascular: Reports: Dyspnea on Exertion, Orthopnea, Edema, Other ( abdominal distention). Denies: Chest Pain Skin: Reports: No Symptoms Neurological: Reports: No Symptoms Psychiatric: Reports: No Symptoms - Patient Data Vitals - Most Recent: Last Vital Signs Temp 97.3 F 10/18/18 07:00 Pulse 116 H 10/18/18 07:00 Resp 18 10/18/18 07:00 BP 150/87 H 10/18/18 07:00 Pulse Ox 95 10/18/18 07:00 Weight - Most Recent: 206 lb I&O - Last 24 Hours: Intake & Output 10/17/18 10/18/18 10/18/18 22:59 06:59 14:59 Intake Total 450 800 Output Total 1 Balance 450 799 Lab Results Last 24 Hours: Laboratory Results - last 24 hr 10/17/18 10/17/18 10/17/18 Range/Units 11:05 11:57 17:51 WBC (5.00-10.00) 10^3/uL RBC (4.50-6.00) 10^6/uL Hgb (13.0-17.0) g/dL Hct (40.0-52.0) % MCV (82.0-92.0) fL MCH (27.0-31.0) pg MCHC (32.0-36.0) g/dL RDW (11.5-14.5) % Plt Count (150-400) 10^3/uL MPV (7.4-10.4) fL Add Manual Diff Neutrophils % (Manual) (50-70) % Band Neutrophils % (4-12) % Lymphocytes % (Manual) (20-40) % Monocytes % (Manual) (2-8) % Eosinophils % (Manual) (1-3) % Absolute Neutrophils Band Neutrophils # Lymphocytes # (Manual) Monocytes # (Manual) Eosinophils # (Manual) PT (8.9-11.4) SEC INR (0.9-1.1) Sodium (136-145) mmol/L Potassium (3.3-5.3) mmol/L Chloride (98-115) mmol/L Carbon Dioxide (21.0-32.0) mmol/L Anion Gap (5-15) mmol/L BUN (6-25) mg/dL Creatinine (0.51-1.17) mg/dL Est Cr Clr Drug Dosing mL/min Estimated GFR (MDRD) mL/min Glucose (75 - 99) mg/dL POC Glucose 309 H 192 H (74-106) mg/dl Calcium (8.7-10.3) mg/dL C-Reactive Protein (0.0-0.9) mg/dL B-Natriuretic Peptide 698 H (0-100) pg/mL 10/18/18 10/18/18 10/18/18 Range/Units 07:00 07:00 07:00 WBC 12.34 H (5.00-10.00) 10^3/uL RBC 4.34 L (4.50-6.00) 10^6/uL Hgb 11.5 L (13.0-17.0) g/dL Hct 34.7 L (40.0-52.0) % MCV 80.0 L (82.0-92.0) fL MCH 26.5 L (27.0-31.0) pg MCHC 33.1 (32.0-36.0) g/dL RDW 16.5 H (11.5-14.5) % Plt Count 246 D (150-400) 10^3/uL MPV 11.2 H (7.4-10.4) fL Add Manual Diff Yes Neutrophils % (Manual) 72 H (50-70) % Band Neutrophils % 4 (4-12) % Lymphocytes % (Manual) 11 L (20-40) % Monocytes % (Manual) 8 (2-8) % Eosinophils % (Manual) 5 H (1-3) % Absolute Neutrophils 8.88 Band Neutrophils # 0.49 Lymphocytes # (Manual) 1.36 Monocytes # (Manual) 0.99 Eosinophils # (Manual) 0.62 PT 15.2 H D (8.9-11.4) SEC INR 1.5 H (0.9-1.1) Sodium 136 (136-145) mmol/L Potassium 3.9 (3.3-5.3) mmol/L Chloride 101 (98-115) mmol/L Carbon Dioxide 20.9 L (21.0-32.0) mmol/L Anion Gap 18.0 H (5-15) mmol/L BUN 17 (6-25) mg/dL Creatinine 0.81 (0.51-1.17) mg/dL Est Cr Clr Drug Dosing 99.79 mL/min Estimated GFR (MDRD) > 60 mL/min Glucose 248 H (75 - 99) mg/dL POC Glucose (74-106) mg/dl Calcium 8.1 L (8.7-10.3) mg/dL C-Reactive Protein 12.2 H (0.0-0.9) mg/dL B-Natriuretic Peptide (0-100) pg/mL 10/18/18 Range/Units 07:52 WBC (5.00-10.00) 10^3/uL RBC (4.50-6.00) 10^6/uL Hgb (13.0-17.0) g/dL Hct (40.0-52.0) % MCV (82.0-92.0) fL MCH (27.0-31.0) pg MCHC (32.0-36.0) g/dL RDW (11.5-14.5) % Plt Count (150-400) 10^3/uL MPV (7.4-10.4) fL Add Manual Diff Neutrophils % (Manual) (50-70) % Band Neutrophils % (4-12) % Lymphocytes % (Manual) (20-40) % Monocytes % (Manual) (2-8) % Eosinophils % (Manual) (1-3) % Absolute Neutrophils Band Neutrophils # Lymphocytes # (Manual) Monocytes # (Manual) Eosinophils # (Manual) PT (8.9-11.4) SEC INR (0.9-1.1) Sodium (136-145) mmol/L Potassium (3.3-5.3) mmol/L Chloride (98-115) mmol/L Carbon Dioxide (21.0-32.0) mmol/L Anion Gap (5-15) mmol/L BUN (6-25) mg/dL Creatinine (0.51-1.17) mg/dL Est Cr Clr Drug Dosing mL/min Estimated GFR (MDRD) mL/min Glucose (75 - 99) mg/dL POC Glucose 241 H (74-106) mg/dl Calcium (8.7-10.3) mg/dL C-Reactive Protein (0.0-0.9) mg/dL B-Natriuretic Peptide (0-100) pg/mL Kashif Results Last 24 Hours: Microbiology 10/16/18 17:45 Aerobic Blood Culture - Preliminary Blood NO GROWTH AFTER 1 DAY Anaerobic Blood Culture - Preliminary NO GROWTH AFTER 1 DAY 10/16/18 17:35 Aerobic Blood Culture - Preliminary Blood NO GROWTH AFTER 1 DAY Anaerobic Blood Culture - Preliminary NO GROWTH AFTER 1 DAY 10/13/18 15:00 Aerobic Blood Culture - Preliminary Blood - Venous NO GROWTH AFTER 4 DAYS Anaerobic Blood Culture - Final 10/13/18 15:00 Aerobic Blood Culture - Preliminary Blood - Venous - Lab Draw NO GROWTH AFTER 4 DAYS Anaerobic Blood Culture - Preliminary NO GROWTH AFTER 4 DAYS Med Orders - Current: Current Medications Acetaminophen (Tylenol) 650 mg PO Q4H PRN PRN Reason: Pain/Fever Last Admin: 10/14/18 05:22 Dose: 650 mg Albuterol/Ipratropium (Duoneb 3.0-0.5 Mg/3 Ml) 3 ml NEB Q4HRRT PRN PRN Reason: Shortness of Breath Last Admin: 10/17/18 04:17 Dose: 3 ml Aspirin (Halfprin) 81 mg PO BRK [facility] Last Admin: 10/17/18 08:10 Dose: 81 mg Benzonatate (Tessalon Perles) 100 mg PO QID PRN PRN Reason: Cough Last Admin: 10/18/18 00:33 Dose: 100 mg Ceftriaxone Sodium (Rocephin) 1 gm IVPUSH Q24H [facility] Last Admin: 10/17/18 08:55 Dose: 1 gm Guaifenesin (Mucinex) 600 mg PO BID [facility] Last Admin: 10/17/18 20:49 Dose: 600 mg Guaifenesin/Phenylephrine HCl (Robitussin Dm) 10 ml PO Q4H PRN PRN Reason: Cough Last Admin: 10/18/18 02:18 Dose: 10 ml Azithromycin 500 mg/ Sodium (Chloride) 250 mls @ 250 mls/hr IV Q24H [facility] Last Admin: 10/17/18 14:46 Dose: 250 mls/hr Sodium Chloride (Normal Saline) 50 mls @ 100 mls/hr IV ASDIRECTED [facility] Last Admin: 10/16/18 16:03 Dose: 100 mls/hr Insulin Aspart (Novolog) 0 unit SUBCUT TIDMEALS [facility]; Protocol Last Admin: 10/18/18 08:07 Dose: 6 units Metoprolol Tartrate (Lopressor) 12.5 mg PO BID [facility] Last Admin: 10/17/18 20:49 Dose: 12.5 mg Nitroglycerin (Nitrostat) 0.4 mg SL ASDIRECTED PRN PRN Reason: Chest Pain Loteprednol (Etabonate [Lotemax]) 1 each EYERT BID [facility] Last Admin: 10/17/18 20:53 Dose: Not Given Sodium Chloride (Saline Flush) 10 ml FLUSH Q8HR PRN PRN Reason: keep vein open Last Admin: 10/17/18 08:11 Dose: 10 ml Warfarin Sodium (Coumadin) 2.5 mg PO [email or web address] [facility] Last Admin: 10/14/18 17:59 Dose: 2.5 mg Warfarin Sodium (Coumadin) 5 mg PO [email or web address] [facility] Last Admin: 10/13/18 20:10 Dose: 5 mg Warfarin Sodium (Pharmacy To Dose - Warfarin) 1 dose PO ASDIRECTED [facility] Warfarin Sodium (Coumadin) 5 mg PO ONETIME ONE Stop: 10/18/18 18:01 Discontinued Medications Acetaminophen (Tylenol) 650 mg PO NOW ONE Stop: 10/13/18 14:30 Last Admin: 10/13/18 14:33 Dose: 650 mg Atropine Sulfate (Atropine 0.1 Mg/Ml) 0 mg IVPUSH ASDIRECTED PRN PRN Reason: Heart Ceftriaxone Sodium (Rocephin) 1 gm IVPUSH ONETIME ONE Stop: 10/13/18 15:40 Last Admin: 10/13/18 15:48 Dose: 1 gm Epinephrine HCl (Epinephrine 1:10,000) 1 mg IVPUSH ASDIRECTED PRN PRN Reason: Heart Sodium Chloride (Normal Saline) 1,000 mls @ 999 mls/hr IV .BOLUS ONE Stop: 10/13/18 15:11 Last Admin: 10/13/18 14:25 Dose: 999 mls/hr Azithromycin 500 mg/ Sodium (Chloride) 250 mls @ 250 mls/hr IV ONETIME ONE Stop: 10/13/18 16:38 Last Admin: 10/13/18 16:09 Dose: 250 mls/hr Sodium Chloride (Normal Saline) 1,000 mls @ 125 mls/hr IV ASDIRECTED [facility] Last Admin: 10/14/18 10:45 Dose: 125 mls/hr Sodium Chloride (Normal Saline) 500 mls @ 999 mls/hr IV .BOLUS ONE Stop: 10/13/18 20:28 Last Admin: 10/13/18 20:18 Dose: 999 mls/hr Insulin Human Regular 100 unit (/ Sodium Chloride) 100 mls @ 5 mls/hr IV ASDIRECTED [facility] Last Admin: 10/13/18 22:10 Dose: 5 unit/hr, 5 mls/hr Sodium Chloride (Normal Saline) 500 mls @ 500 mls/hr IV NOW ONE Stop: 10/13/18 23:44 Last Admin: 10/14/18 08:05 Dose: Not Given Sodium Chloride (Normal Saline) 1,000 mls [facility] Admin: 10/15/18 12:42 Dose: 100 mls/hr Sodium Chloride (Normal Saline) 400 mls @ 999 mls/hr IV .BOLUS ONE Stop: 10/14/18 17:03 Last Admin: 10/14/18 17:30 Dose: 999 mls/hr Sodium Chloride (Normal Saline) 250 mls @ 70 [facility] Last Admin: 10/16/18 03:50 Dose: 70 mls/hr Sodium Chloride (Normal Saline) 1,000 mls @ 70 [facility] Insulin Aspart (Novolog) 5 unit SUBCUT ONETIME ONE Stop: 10/13/18 19:45 Last Admin: 10/13/18 20:14 Dose: 5 units Insulin Detemir (Levemir) 10 unit SUBCUT ONETIME ONE Stop: 10/13/18 19:41 Last Admin: 10/13/18 20:15 Dose: 10 units Insulin Human Regular (Novolin R) 5 unit IV ONETIME ONE; Protocol Stop: 10/13/18 22:25 Last Admin: 10/13/18 22:00 Dose: 5 unit Insulin Human Regular (Novolin R) 5 unit IV ONETIME ONE; Protocol Stop: 10/14/18 02:00 Last Admin: 10/14/18 02:15 Dose: 5 unit Lidocaine HCl (Xylocaine 2%) 0 mg IVPUSH ASDIRECTED PRN PRN Reason: Heart Metformin HCl (Glucophage) 500 mg PO ONETIME ONE Stop: 10/13/18 14:57 Last Admin: 10/13/18 15:09 Dose: 500 mg Metoprolol Tartrate (Lopressor) 12.5 mg PO ONETIME ONE Stop: 10/13/18 14:57 Last Admin: 10/13/18 15:09 Dose: 12.5 mg Nitroglycerin (Nitrostat) 0.4 mg SL ASDIRECTED PRN PRN Reason: Heart Phytonadione (Aquamephyton) 2.5 mg PO ONETIME ONE Stop: 10/17/18 11:08 Last Admin: 10/17/18 14:36 Dose: Not Given Phytonadione (Aquamephyton) 2.5 mg PO ONETIME ONE Stop: 10/17/18 12:31 Last Admin: 10/17/18 12:50 Dose: 2.5 mg Sodium Chloride (Normal Saline) 500 ml IV ONETIME ONE Stop: 10/13/18 21:46 Last Admin: 10/14/18 11:16 Dose: Not Given - Exam Quality Assessment: No: Supplemental Oxygen General: Alert, Oriented Lungs: Other (expiratory congestion throughout. Improved from yesterday). No: Wheezing Cardiovascular: Other (heart rate 112) GI/Abdominal Exam: Soft, Distended Extremities: Pedal Edema (trace john) Skin: Warm, Dry Psy/Mental Status: Alert, Normal Affect, Normal Mood - Problem List Review Problem List Initiated/Reviewed/Updated: Yes - My Orders Last 24 Hours: My Active Orders 10/17/18 11:10 Benzonatate [Tessalon Perles] 100 mg PO QID PRN 10/17/18 13:02 Dietary Supplements [RC] BIDAC 10/17/18 13:04 Weight Daily [Height and Weight] [RC] DAILY 10/18/18 18:00 Warfarin [Coumadin] 5 mg PO ONETIME ONE - Plan Plan:: History of present illness Patient had been feeling very poorly for 3-4 days prior to presenting to a [place] clinic and staff noticed his speech was "off" and not clear and was sent to [place] ED via ambulance. Pt had been in his normal state of health up until 3 - 4 days before admission. Prior to admission he was sweaty, altered speech, no n/v/d, denied cough. He did fall and hit his head, states he was unstable, Denies ETOH, tobacco or any other illicit drugs. Patient has had progressive weakness since the onset of his symptoms. also states on Friday the patient had a new onset speech difficulty in which he had difficulty finding words and speaking. He seemed to improve somewhat but on admission she had noted that he was unable to express words correctly. Pt has also reported for about the last year he has noticed intentional tremors. Pt was admitted with Pneumonia, right lung base, CAP, Sepsis, Type 2 diabetes mellitus, history of atrial flutter, paroxysmal atrial fib, s/p mitral valve repair for which he is on anticoagulation. Today pt is reporting his breathing is maybe a bit better than yesterday. He continues with cough, afebrile. He has noticed the coughing and shortness of breath are worse with sitting up. His weight is up 6# from yesterday. He has tachycardia with heart rate 112. Primary diagnosis Pneumonia, right lung base, CAP, Sepsis: improving clinically per pt report. CBC shows WBC back up to 12.34 (was 7.79 on 10/15) Neutrophilia improved to 72%. CRP elevated at 12.2 (0-0.9). Will use O2 prn to keep O2 sats > 94%. Continue on Azithromycin and Rocephin IV, duonebs qid prn, mucinex bid, tessalon Perles for cough. Recheck CBC in the morning. Atrial flutter, paroxysmal, [id number] score 5, anticoagulation, rate control with metoprolol. He is on metoprolol tartrate 12.5 mg bid. Will increase metoprolol to 25 mg bid. Acute CHF: BNP was elevated at 309 10/17/18 and weight is up 6# from yesterday. Renal functions are now all WNL. Will begin gentle diuresis with lasix 20 mg IV today and one time potassium 10 mEq supplementation. EKG of 10/14/18 showed atrial flutter with variable AV block, left axis deviation. Nonspecific intraventricular block. His last echo 03/26/18 showed atrial flutter/fib, mitral ring apparatus, moderately dilated left ventricle with EF 50%. Mildly dilated left atrium. Dilated right atrium. Right ventricle: low normal right ventricular systolic function. Moderate pulmonary artery hypertension. Chronic anticoagulation: INR was high at 5.5 with hemoptysis yesterday. He was given vitamin K 2.5 mg. Today his INR is subtherapeutic at 1.5. Pharmacy has dosed coumadin 5 mg today, recheck INR tomorrow. Will give lovenox 80 mg sq bid until INRs therapeutic. T2DM uncontrolled, on Novolog sliding scale tid with meals. His blood sugars have been high at 192-309. He was on metformin 500 mg bid at home, no insulin. 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 Will continue with sliding scale insulin while in the hospital and restart the metformin on discharge. Chronic problems S/P CABG x 3 S/P mitral valve annuloplasty HLD, statin therapy, HTN, Konrad inhibition, metoprolol tartrate CAD, DAPT with ASA, DAPT score?
[2018-10-18] MEDS ORDERED: guaiFENesin/Dextromethorphan 100-10 MG/5 ML Soln 5 ML Cup PO PRN (09:05)
[2018-10-18] MEDS: Metoprolol Tartrate 25 MG Tab PO SCH ×2 (09:14→22:29)
[2018-10-18] MEDS: Aspirin 81 MG Tab.EC PO SCH (09:15)
[2018-10-18] MEDS: guaiFENesin 600 MG Tab.ER PO SCH ×2 (09:15→22:29)
[2018-10-18] MEDS: cefTRIAXone 1 GM Vial IVPUSH SCH (09:16)
[2018-10-18] MEDS: Sodium Chloride 0.9% 10 ML Syringe FLUSH PRN (09:16)
[2018-10-18] MEDS ORDERED: Enoxaparin 40 MG/0.4 ML Syringe SUBCUT SCH ×2 (10:00→11:00)
[2018-10-18] MEDS: Loteprednol Etabonate [Lotemax] EYERT SCH ×2 (10:04→22:33)
[2018-10-18] MEDS ORDERED: Potassium Chloride 10 MEQ Tab.ER PO ONE (10:39)
[2018-10-18] MEDS ORDERED: Furosemide 40 MG/4 ML VIAL IVPUSH ONE (10:39)
[2018-10-18] MEDS: Enoxaparin 100 MG/1 ML Syringe SUBCUT SCH ×2 (11:23→22:32)
[2018-10-18] MEDS: Sodium Chloride 0.9% 50 ML IV SCH (13:54)
[2018-10-18] MEDS: Azithromycin 500 MG in Sodium Chloride 0.9% 250 ML IV SCH (13:54)
[2018-10-18] MEDS ORDERED: Warfarin 5 MG Tab PO ONE (18:00)
[2018-10-18] MEDS ORDERED: guaiFENesin 100 MG/5 ML Soln 5 ML UD Cup PO PRN ×2 (22:00→23:31)
[2018-10-19 08:03] LABS: ANION GAP 20.2 mmol/L (5-15); CHLORIDE,CL 101 mmol/L (98-115); SODIUM,NA 141 mmol/L (136-145)
[2018-10-19] MEDS: Insulin Aspart 100 Units/ML 3 ML Pen SUBCUT SCH ×3 (08:07→19:16)
[2018-10-19] MEDS: Aspirin 81 MG Tab.EC PO SCH (08:09)
[2018-10-19] MEDS: Metoprolol Tartrate 25 MG Tab PO SCH ×2 (08:09→20:42)
[2018-10-19] MEDS: cefTRIAXone 1 GM Vial IVPUSH SCH (08:10)
[2018-10-19] MEDS: guaiFENesin 600 MG Tab.ER PO SCH ×2 (08:10→20:42)
[2018-10-19] MEDS: Loteprednol Etabonate [Lotemax] EYERT SCH ×2 (08:12→20:43)
[2018-10-19] MEDS ORDERED: Sodium Chloride 0.9% 10 ML Syringe FLUSH PRN (09:59)
--- NOTE | 2018-10-19 10:36 | PCM.PN ---
- General Info Date of Service: 10/19/18 Functional Status: Reports: Pain Controlled, Tolerating Diet. Denies: Ambulating - Review of Systems General: Denies: Fever, Weakness, Fatigue, Malaise Pulmonary: Reports: Shortness of Breath, Cough, Other (rales) Cardiovascular: Reports: Dyspnea on Exertion, Edema (Mild edema bilateral lower extremities nonpitting) Genitourinary: Reports: No Symptoms Musculoskeletal: Reports: Neck Pain (Acute left knee pain). Denies: Joint Swelling Skin: Denies: Diaphoresis Neurological: Denies: Confusion, Dizziness Psychiatric: Reports: No Symptoms - Patient Data Vitals - Most Recent: Last Vital Signs Temp 97.9 F 10/19/18 06:48 Pulse 93 10/19/18 08:09 Resp 18 10/19/18 06:48 BP 145/82 H 10/19/18 08:09 Pulse Ox 93 L 10/19/18 06:48 Weight - Most Recent: 203 lb 3.2 oz I&O - Last 24 Hours: Intake & Output 10/18/18 10/19/18 10/19/18 22:59 06:59 14:59 Intake Total 650 350 Balance 650 350 Lab Results Last 24 Hours: Laboratory Results - last 24 hr 10/18/18 10/18/18 10/19/18 Range/Units 11:32 17:56 06:55 WBC (5.00-10.00) 10^3/uL RBC (4.50-6.00) 10^6/uL Hgb (13.0-17.0) g/dL Hct (40.0-52.0) % MCV (82.0-92.0) fL MCH (27.0-31.0) pg MCHC (32.0-36.0) g/dL RDW (11.5-14.5) % Plt Count (150-400) 10^3/uL MPV (7.4-10.4) fL Add Manual Diff Neutrophils % (Manual) (50-70) % Lymphocytes % (Manual) (20-40) % Monocytes % (Manual) (2-8) % Absolute Neutrophils Lymphocytes # (Manual) Monocytes # (Manual) PT 13.7 H (8.9-11.4) SEC INR 1.4 H (0.9-1.1) Sodium (136-145) mmol/L Potassium (3.3-5.3) mmol/L Chloride (98-115) mmol/L Carbon Dioxide (21.0-32.0) mmol/L Anion Gap (5-15) mmol/L BUN (6-25) mg/dL Creatinine (0.51-1.17) mg/dL Est Cr Clr Drug Dosing mL/min Estimated GFR (MDRD) mL/min Glucose (75 - 99) mg/dL POC Glucose 332 H 151 H (74-106) mg/dl Calcium (8.7-10.3) mg/dL 10/19/18 10/19/18 Range/Units 06:55 06:55 WBC 10.48 H (5.00-10.00) 10^3/uL RBC 4.18 L (4.50-6.00) 10^6/uL Hgb 11.0 L (13.0-17.0) g/dL Hct 33.6 L (40.0-52.0) % MCV 80.4 L (82.0-92.0) fL MCH 26.3 L (27.0-31.0) pg MCHC 32.7 (32.0-36.0) g/dL RDW 16.7 H (11.5-14.5) % Plt Count 292 (150-400) 10^3/uL MPV 10.4 (7.4-10.4) fL Add Manual Diff Yes Neutrophils % (Manual) 79 H (50-70) % Lymphocytes % (Manual) 8 L (20-40) % Monocytes % (Manual) 11 H (2-8) % Absolute Neutrophils 8.2792 Lymphocytes # (Manual) 1.0480 Monocytes # (Manual) 1.1528 PT (8.9-11.4) SEC INR (0.9-1.1) Sodium 141 (136-145) mmol/L Potassium 4.1 (3.3-5.3) mmol/L Chloride 101 (98-115) mmol/L Carbon Dioxide 23.9 (21.0-32.0) mmol/L Anion Gap 20.2 H (5-15) mmol/L BUN 14 (6-25) mg/dL Creatinine 0.86 (0.51-1.17) mg/dL Est Cr Clr Drug Dosing 93.99 mL/min Estimated GFR (MDRD) > 60 mL/min Glucose 259 H (75 - 99) mg/dL POC Glucose (74-106) mg/dl Calcium 7.8 L (8.7-10.3) mg/dL Kashif Results Last 24 Hours: Microbiology 10/16/18 17:45 Aerobic Blood Culture - Preliminary Blood NO GROWTH AFTER 2 DAYS Anaerobic Blood Culture - Preliminary NO GROWTH AFTER 2 DAYS 10/16/18 17:35 Aerobic Blood Culture - Preliminary Blood NO GROWTH AFTER 2 DAYS Anaerobic Blood Culture - Preliminary NO GROWTH AFTER 2 DAYS 10/13/18 15:00 Aerobic Blood Culture - Final Blood - Venous NO GROWTH AFTER 5 DAYS Anaerobic Blood Culture - Final 10/13/18 15:00 Aerobic Blood Culture - Final Blood - Venous - Lab Draw NO GROWTH AFTER 5 DAYS Anaerobic Blood Culture - Final NO GROWTH AFTER 5 DAYS Med Orders - Current: Current Medications Acetaminophen (Tylenol) 650 mg PO Q4H PRN PRN Reason: Pain/Fever Last Admin: 10/14/18 05:22 Dose: 650 mg Albuterol/Ipratropium (Duoneb 3.0-0.5 Mg/3 Ml) 3 ml NEB Q4HRRT PRN PRN Reason: Shortness of Breath Last Admin: 10/17/18 04:17 Dose: 3 ml Aspirin (Halfprin) 81 mg PO BRK [facility] Last Admin: 10/19/18 08:09 Dose: 81 mg Azithromycin (Zithromax) 500 mg PO DAILY [facility] Benzonatate (Tessalon Perles) 100 mg PO QID PRN PRN Reason: Cough Last Admin: 10/18/18 00:33 Dose: 100 mg Ceftriaxone Sodium (Rocephin) 1 gm IVPUSH Q24H [facility] Last Admin: 10/19/18 08:10 Dose: 1 gm Enoxaparin Sodium (Lovenox) 80 mg SUBCUT Q12H [facility] Last Admin: 10/18/18 22:32 Dose: 80 mg Guaifenesin (Mucinex) 600 mg PO BID [facility] Last Admin: 10/19/18 08:10 Dose: 600 mg Guaifenesin (Robitussin) 200 mg PO Q4H PRN PRN Reason: Cough Guaifenesin/Phenylephrine HCl (Robitussin Dm) 10 ml PO Q4H PRN PRN Reason: Cough Insulin Aspart (Novolog) 0 unit SUBCUT TIDMEALS [facility]; Protocol Last Admin: 10/19/18 08:07 Dose: 9 units Metoprolol Tartrate (Lopressor) 25 mg PO BID [facility] Last Admin: 10/19/18 08:09 Dose: 25 mg Nitroglycerin (Nitrostat) 0.4 mg SL ASDIRECTED PRN PRN Reason: Chest Pain Loteprednol (Etabonate [Lotemax]) 1 each EYERT BID [facility] Last Admin: 10/19/18 08:12 Dose: Not Given Sodium Chloride (Saline Flush) 10 ml FLUSH Q8HR PRN PRN Reason: keep vein open Last Admin: 10/18/18 09:16 Dose: 10 ml Sodium Chloride (Saline Flush) 10 ml FLUSH Q8HR PRN PRN Reason: keep vein open Warfarin Sodium (Coumadin) 2.5 mg PO [email or web address] [facility] Last Admin: 10/14/18 17:59 Dose: 2.5 mg Warfarin Sodium (Coumadin) 5 mg PO [email or web address] [facility] Last Admin: 10/13/18 20:10 Dose: 5 mg Warfarin Sodium (Pharmacy To Dose - Warfarin) 1 dose PO ASDIRECTED [facility] Warfarin Sodium (Coumadin) 5 mg PO ONETIME ONE Stop: 10/19/18 18:01 Discontinued Medications Acetaminophen (Tylenol) 650 mg PO NOW ONE Stop: 10/13/18 14:30 Last Admin: 10/13/18 14:33 Dose: 650 mg Atropine Sulfate (Atropine 0.1 Mg/Ml) 0 mg IVPUSH ASDIRECTED PRN PRN Reason: Heart Ceftriaxone Sodium (Rocephin) 1 gm IVPUSH ONETIME ONE Stop: 10/13/18 15:40 Last Admin: 10/13/18 15:48 Dose: 1 gm Enoxaparin Sodium (Lovenox) 40 mg SUBCUT Q12H [facility] Last Admin: 10/18/18 11:05 Dose: Not Given Enoxaparin Sodium (Lovenox) 80 mg SUBCUT Q12H [facility] Epinephrine HCl (Epinephrine 1:10,000) 1 mg IVPUSH ASDIRECTED PRN PRN Reason: Heart Furosemide (Lasix) 20 mg IVPUSH NOW ONE Stop: 10/18/18 10:40 Last Admin: 10/18/18 11:23 Dose: 20 mg Guaifenesin (Robitussin) 100 mg PO Q4H PRN PRN Reason: Cough Guaifenesin/Phenylephrine HCl (Robitussin Dm) 10 ml PO Q4H PRN PRN Reason: Cough Last Admin: 10/18/18 02:18 Dose: 10 ml Sodium Chloride (Normal Saline) 1,000 mls @ 999 mls/hr IV .BOLUS ONE Stop: 10/13/18 15:11 Last Admin: 10/13/18 14:25 Dose: 999 mls/hr Azithromycin 500 mg/ Sodium (Chloride) 250 mls @ 250 mls/hr IV ONETIME ONE Stop: 10/13/18 16:38 Last Admin: 10/13/18 16:09 Dose: 250 mls/hr Azithromycin 500 mg/ Sodium (Chloride) 250 mls @ 250 mls/hr IV Q24H [facility] Last Admin: 10/18/18 13:54 Dose: 250 mls/hr Sodium Chloride (Normal Saline) 1,000 mls @ [facility] Last Admin: 10/14/18 10:45 Dose: 125 mls/hr Sodium Chloride (Normal Saline) 500 mls @ 999 mls/hr IV .BOLUS ONE Stop: 10/13/18 20:28 Last Admin: 10/13/18 20:18 Dose: 999 mls/hr Insulin Human Regular 100 unit (/ Sodium Chloride) 100 mls @ 5 mls/hr IV ASDIRECTED [facility] Last Admin: 10/13/18 22:10 Dose: 5 unit/hr, 5 mls/hr Sodium Chloride (Normal Saline) 500 mls @ 500 mls/hr IV NOW ONE Stop: 10/13/18 23:44 Last Admin: 10/14/18 08:05 Dose: Not Given Sodium Chloride (Normal Saline) 1,000 mls @ 100 mls/hr IV ASDIRECTED [facility] Last Admin: 10/15/18 12:42 Dose: 100 mls/hr Sodium Chloride (Normal Saline) 400 mls @ 999 mls/hr IV .BOLUS ONE Stop: 10/14/18 17:03 Last Admin: 10/14/18 17:30 Dose: 999 mls/hr Sodium Chloride (Normal Saline) 250 mls @ 70 [facility] Last Admin: 10/16/18 03:50 Dose: 70 mls/hr Sodium Chloride (Normal Saline) 1,000 mls @ 70 mls/hr IV ASDIRECTED ROXY Sodium Chloride (Normal Saline) 50 mls @ 100 mls/hr IV ASDIRECTED ROXY Last Admin: 10/18/18 13:54 Dose: 100 mls/hr Insulin Aspart (Novolog) 5 unit SUBCUT ONETIME ONE Stop: 10/13/18 19:45 Last Admin: 10/13/18 20:14 Dose: 5 units Insulin Detemir (Levemir) 10 unit SUBCUT ONETIME ONE Stop: 10/13/18 19:41 Last Admin: 10/13/18 20:15 Dose: 10 units Insulin Human Regular (Novolin R) 5 unit IV ONETIME ONE; Protocol Stop: 10/13/18 22:25 Last Admin: 10/13/18 22:00 Dose: 5 unit Insulin Human Regular (Novolin R) 5 unit IV ONETIME ONE; Protocol Stop: 10/14/18 02:00 Last Admin: 10/14/18 02:15 Dose: 5 unit Lidocaine HCl (Xylocaine 2%) 0 mg IVPUSH ASDIRECTED PRN PRN Reason: Heart Metformin HCl (Glucophage) 500 mg PO ONETIME ONE Stop: 10/13/18 14:57 Last Admin: 10/13/18 15:09 Dose: 500 mg Metoprolol Tartrate (Lopressor) 12.5 mg PO ONETIME ONE Stop: 10/13/18 14:57 Last Admin: 10/13/18 15:09 Dose: 12.5 mg Metoprolol Tartrate (Lopressor) 12.5 mg PO BID [facility] Last Admin: 10/18/18 09:14 Dose: 12.5 mg Nitroglycerin (Nitrostat) 0.4 mg SL ASDIRECTED PRN PRN Reason: Heart Phytonadione (Aquamephyton) 2.5 mg PO ONETIME ONE Stop: 10/17/18 11:08 Last Admin: 10/17/18 14:36 Dose: Not Given Phytonadione (Aquamephyton) 2.5 mg PO ONETIME ONE Stop: 10/17/18 12:31 Last Admin: 10/17/18 12:50 Dose: 2.5 mg Potassium Chloride (Klor-Con 10) 10 meq PO ONETIME ONE Stop: 10/18/18 10:40 Last Admin: 10/18/18 11:23 Dose: 10 meq Sodium Chloride (Normal Saline) 500 ml IV ONETIME ONE Stop: 10/13/18 21:46 Last Admin: 10/14/18 11:16 Dose: Not Given Warfarin Sodium (Coumadin) 5 mg PO ONETIME ONE Stop: 10/18/18 18:01 Last Admin: 10/18/18 17:57 Dose: 5 mg Comments:: New symptoms today are left knee pain and right wrist pain - Exam Quality Assessment: No: Supplemental Oxygen General: Alert, Oriented, Cooperative Neck: Supple, No JVD. No: JVD Lungs: Rales, Rhonchi Cardiovascular: Tachycardia GI/Abdominal Exam: Soft Back Exam: No: CVA Tenderness (L), CVA Tenderness (R) Extremities: No Pedal Edema Peripheral Pulses: 2+: Radial (L), Radial (R) Skin: Dry, Cool Neurological: No New Focal Deficit Psy/Mental Status: Alert, Normal Affect, Normal Mood - Problem List Review Problem List Initiated/Reviewed/Updated: Yes - My Orders Last 24 Hours: My Active Orders 10/19/18 09:59 Sodium Chloride 0.9% [Saline Flush] 10 ml FLUSH Q8HR PRN Convert IV to Saline Lock [OM.PC] Routine 10/19/18 10:00 Azithromycin [Zithromax] 500 mg PO DAILY 10/20/18 05:11 CRP [C-REACTIVE PROTEIN] [CHEM] AM - Plan Plan:: History of present illness Patient had been feeling very poorly for 3-4 days prior to presenting to a [place] clinic and staff noticed his speech was "off" and not clear and was sent to [facility] via ambulance. Pt had been in his normal state of health up until 3 - 4 days before admission. Prior to admission he was sweaty, altered speech, no n/v/d, denied cough. He did fall and hit his head, states he was unstable, Denies ETOH, tobacco or any other illicit drugs. Patient has had progressive weakness since the onset of his symptoms. also states on Friday the patient had a new onset speech difficulty in which he had difficulty finding words and speaking. He seemed to improve somewhat but on admission she had noted that he was unable to express words correctly. Pt has also reported for about the last year he has noticed intentional tremors. Pt was admitted with Pneumonia, right lung base, CAP, Sepsis, Type 2 diabetes mellitus, history of atrial flutter, paroxysmal atrial fib, s/p mitral valve repair for which he is on anticoagulation. Update today Off of oxygen, still considerable rhonchi and rails bilaterally, report shortness of breath on ambulation, mild cough, weight is down slightly 3 pounds from yesterday, no PND, mild 100-105 Primary diagnosis Pneumonia, right lung base, CAP, Sepsis: improving clinically per pt report. CBC shows WBC back down to 10.4. Neutrophilia of 89%, CRP trending down, no longer on oxygen, change to by mouth Azithromycin. Rocephin IV, duonebs qid prn , mucinex bid, tessalon Perles for cough. Atrial flutter, paroxysmal, [id number] score 5, anticoagulation, rate control with metoprolol. He is on metoprolol tartrate 12.5 mg bid. Daily beta isela increased to 25 mg bid--some improvement in rate control Acute CHF: BNP was elevated at 309 10/17/18, weight is down 3 pounds from yesterday. Renal functions are now all WNL. Increase Lasix today. EKG of showed atrial flutter with variable AV block, left axis deviation. Nonspecific intraventricular block. His last echo 03/26/18 showed atrial flutter/ fib, mitral ring apparatus, moderately dilated left ventricle with EF 50%. Mildly dilated left atrium. Dilated right atrium. Right ventricle: low normal right ventricular systolic function. Moderate pulmonary artery hypertension. Chronic anticoagulation: INR was high at 5.5 with hemoptysis on October 18 in which was given vitamin K 2.5 mg. Today his INR is subtherapeutic at 1.4. Pharmacy has dosed coumadin 5 mg today, recheck INR tomorrow. Currrently LMWH 80 mg sq bid until INRs/overlapping therapy adequate T2DM uncontrolled, on Novolog sliding scale tid with meals. Improvement in blood glucose this morning at 151. Continue holding metformin due to possible chest CT. 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 Will continue with sliding scale insulin while in the hospital and restart the metformin on discharge. Chronic problems S/P CABG x 3 S/P mitral valve annuloplasty HLD, statin therapy, HTN, Konrad inhibition, metoprolol tartrate CAD, DAPT with ASA, DAPT score2 Plan today, chest CT today, increase diuretic therapy, left knee x-ray, uric acid level, transition to PO azithromycin, start back on KONRAD inhibitor.
[2018-10-19] MEDS: Enoxaparin 100 MG/1 ML Syringe SUBCUT SCH ×2 (11:33→23:11)
[2018-10-19] MEDS: Azithromycin 250 MG Tab PO SCH (11:35)
[2018-10-19] MEDS: Lisinopril 20 MG Tab PO SCH (11:37)
--- NOTE | 2018-10-19 12:04 | CT ---
[id number] CT/CT Chest WO IV EXAM: CT Chest WO IV CLINICAL DATA: CONSIDERABLE RALES. COMPARISON: Radiograph from October 07, 2018. FINDINGS: LUNGS: Extensive bilateral parenchymal opacification. Findings are most prominent in the right lower lobe, where there are large areas of dense parenchymal opacification. Despite being bilateral in distribution, appearance is most consistent with pneumonia. There are small bilateral pleural effusions wall right greater than left. In the absence of clinical infection, sequela of pulmonary edema is possible however is thought less likely. HEART AND GREAT VESSELS: Cardiomegaly. No pericardial effusion. MEDIASTINUM AND LYMPHATICS: Numerous enlarged mediastinal lymph nodes. Largest is in the lower right paratracheal station measuring 14 mm in short axis diameter. This will be more consistent with sequela of pneumonia as well. UPPER ABDOMINAL ORGANS: Unremarkable. BONES: Scattered changes of spondylosis in the spine. No fracture or osseous lesion. IMPRESSION: Bilateral parenchymal opacification, most prominent in the right lower lobe correlating with findings on most recent chest radiograph. Appearance and distribution is most consistent with pneumonia, described in detail above. Differential diagnosis includes pulmonary edema as well. Tobias Plummer MD 10/19/18 [id number] Thank you for allowing us to participate in the care of your patient.
[2018-10-19] MEDS: Furosemide 40 MG/4 ML VIAL IVPUSH SCH (14:21)
[2018-10-19] MEDS ORDERED: Furosemide 40 MG/4 ML VIAL IVPUSH ONE (18:00)
[2018-10-19] MEDS ORDERED: Warfarin 5 MG Tab PO ONE (18:00)
[2018-10-20 07:43] LABS: ANION GAP 13.6 mmol/L (5-15); CHLORIDE,CL 103 mmol/L (98-115); SODIUM,NA 138 mmol/L (136-145)
[2018-10-20] MEDS: Insulin Aspart 100 Units/ML 3 ML Pen SUBCUT SCH ×2 (08:22→11:57)
[2018-10-20] MEDS: Metoprolol Tartrate 25 MG Tab PO SCH ×2 (08:25→08:31)
[2018-10-20] MEDS: Aspirin 81 MG Tab.EC PO SCH (08:25)
[2018-10-20] MEDS: Azithromycin 250 MG Tab PO SCH (08:25)
[2018-10-20] MEDS: Lisinopril 20 MG Tab PO SCH (08:26)
[2018-10-20] MEDS: Furosemide 40 MG/4 ML VIAL IVPUSH SCH (08:26)
[2018-10-20] MEDS: guaiFENesin 600 MG Tab.ER PO SCH (08:26)
[2018-10-20] MEDS: Loteprednol Etabonate [Lotemax] EYERT SCH (08:27)
[2018-10-20] MEDS: cefTRIAXone 1 GM Vial IVPUSH SCH (08:27)
--- NOTE | 2018-10-20 09:43 | PCM.DCSUM1 ---
Discharge Summary - Hospital Course Diagnosis: Stroke: No - Discharge Data Discharge Date: 10/20/18 Discharge Disposition: Home, Self-Care 01 Condition: Good - Patient Instructions Diet: Usual Diet as Tolerated, Drink 8-10+ Glasses/Day Activity: As Tolerated, Cough & Deep Breathe Driving: May Drive Today Showering/Bathing: May Shower Notify Provider of: Fever, Nausea and/or Vomiting Other/Special Instructions: --Report any worsening shortness of breath. --Use your breathing device every couple hours during the day. --Take your antibiotics. -- we will check your blood level INR--take 5mg Coumadin until - Discharge Plan *PRESCRIPTION DRUG MONITORING PROGRAM REVIEWED*: Not Applicable *COPY OF PRESCRIPTION DRUG MONITORING REPORT IN PATIENT GREG: Not Applicable Prescriptions/Med Rec: Furosemide [Lasix] 20 mg PO DAILY #4 tab Levofloxacin 750 mg PO DAILY #5 tablet Metoprolol Tartrate 50 mg PO BID #20 tablet Home Medications: Home Meds Aspirin [Halfprin] 81 mg PO BRK 05/16/17 [History] Fish Oil/Anderson-3 Fatty Acids [Fish Oil 1,000 MG] 1 each PO DAILY 05/16/17 [ History] Lisinopril [Prinivil] 20 mg PO DAILY 05/16/17 [History] Loteprednol Etabonate [Lotemax] 1 drop EYERT BID 05/16/17 [History] Warfarin [Coumadin] 5 mg PO SUTUTHSA 05/16/17 [History] atorvaSTATin [Lipitor] 20 mg PO DAILY 05/16/17 [History] Nitroglycerin 0.4 mg SL ASDIRECTED PRN 10/13/18 [History] Potassium Gluconate 500 mg PO BEDTIME 10/13/18 [History] Warfarin [Coumadin] 2.5 mg PO MOWEFR 10/13/18 [History] metFORMIN [Glucophage] 500 mg PO BIDMEALS 10/13/18 [History] Furosemide [Lasix] 20 mg PO DAILY #4 tab 10/20/18 [Rx] Levofloxacin 750 mg PO DAILY #5 tablet 10/20/18 [Rx] Metoprolol Tartrate 50 mg PO BID #20 tablet 10/20/18 [Rx] Referrals: Henok Mayo NP [Nurse Practitioner] - ( in [place]) - Discharge Summary/Plan Comment DC Time >30 min.: Yes Discharge Summary/Plan Comment: Final diagnosis Pneumonia, right lung base, CAP Sepsis Atrial flutter, paroxysmal, needs optimal control Acute CHF Chronic anticoagulation T2DM uncontrolled (acute in hospita) Chronic problems S/P CABG x 3 S/P mitral valve annuloplasty HLD, HTN, CAD, History Hospital course chest CT Patient had been feeling very poorly for 3-4 days prior to presenting to a [place] [facility] and staff noticed his speech was "off" and not clear and was sent to [place] ED via ambulance. Pt had been in his normal state of health up until 3 - 4 days before admission. Prior to admission he was sweaty, altered speech, no n/v/d, denied cough. He did fall and hit his head, states he was unstable, Denies ETOH, tobacco or any other illicit drugs. Patient has had progressive weakness since the onset of his symptoms. also states on Friday the patient had a new onset speech difficulty in which he had difficulty finding words and speaking. He seemed to improve somewhat but on admission she had noted that he was unable to express words correctly. Pt has also reported for about the last year he has noticed intentional tremors. Pt was admitted with Pneumonia, right lung base, CAP, Sepsis, Type 2 diabetes mellitus, history of atrial flutter, paroxysmal atrial fib, s/p mitral valve repair for which he is on anticoagulation. Primary diagnosis Pneumonia, right lung base, CAP, Sepsis: improving clinically per pt report. CBC shows WBC back down to 10.4. Neutrophilia of 89%, CRP trending down, no longer on oxygen, change to by mouth Azithromycin. Rocephin IV, duonebs qid prn , mucinex bid, tessalon Perles for cough. Atrial flutter, paroxysmal, [id number] score 5, anticoagulation, rate control with metoprolol. He is on metoprolol tartrate 12.5 mg bid. Daily beta isela increased to 25 mg bid--some improvement in rate control Acute CHF: BNP was elevated at 309 10/17/18, weight is down 3 pounds from yesterday. Renal functions are now all WNL. Increase Lasix today. EKG of showed atrial flutter with variable AV block, left axis deviation. Nonspecific intraventricular block. His last echo 03/26/18 showed atrial flutter/ fib, mitral ring apparatus, moderately dilated left ventricle with EF 50%. Mildly dilated left atrium. Dilated right atrium. Right ventricle: low normal right ventricular systolic function. Moderate pulmonary artery hypertension. Chronic anticoagulation: INR was high at 5.5 with hemoptysis on October 18 in which was given vitamin K 2.5 mg. Today his INR is subtherapeutic at 1.4. Pharmacy has dosed coumadin 5 mg today, recheck INR tomorrow. Currrently LMWH 80 mg sq bid until INRs/overlapping therapy adequate T2DM uncontrolled, on Novolog sliding scale tid with meals. Improvement in blood glucose this morning at 151. Continue holding metformin due to possible chest CT. 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 Will continue with sliding scale insulin while in the hospital and restart the metformin on discharge. Chronic problems S/P CABG x 3 S/P mitral valve annuloplasty HLD, statin therapy, HTN, Konrad inhibition, metoprolol tartrate CAD, DAPT with ASA, DAPT score2 Plan today, today, increase diuretic therapy, left knee x-ray, uric acid level , transition to PO azithromycin, start back on KONRAD inhibitor. Medication changes/adjustments upon discharge Metoprolol tartrate 50 mg by mouth twice a day (increased upon discharge) came in the hospital 12.5mg by mouth twice a day was increased to 25 mg by mouth twice a day while in hospital. Lasix 20 mg by mouth daily 4 days Levaquin 750 mg by mouth daily 5 days Take 5 mg and Coumadin until follow-up We'll see him [facility] - Patient Data Vitals - Most Recent: Last Vital Signs Temp 98.2 F 10/20/18 06:32 Pulse 106 H 10/20/18 08:31 Resp 16 10/20/18 06:32 BP 115/62 10/20/18 08:31 Pulse Ox 92 L 10/20/18 06:32 Weight - Most Recent: 199 lb 2 oz I&O - Last 24 hours: Intake & Output 10/19/18 10/20/18 10/20/18 22:59 06:59 14:59 Intake Total 0 650 Output Total 1900 700 Balance -1900 -50 Lab Results - Last 24 hrs: Laboratory Results - last 24 hr 10/19/18 10/19/18 10/19/18 Range/Units 06:55 08:05 11:37 PT (8.9-11.4) SEC INR (0.9-1.1) Sodium (136-145) mmol/L Potassium (3.3-5.3) mmol/L Chloride (98-115) mmol/L Carbon Dioxide (21.0-32.0) mmol/L Anion Gap (5-15) mmol/L BUN (6-25) mg/dL Creatinine (0.51-1.17) mg/dL Est Cr Clr Drug Dosing mL/min Estimated GFR (MDRD) mL/min Glucose (75 - 99) mg/dL POC Glucose 265 H 287 H (74-106) mg/dl Uric Acid 4.0 (2.6-7.2) mg/dL Calcium (8.7-10.3) mg/dL C-Reactive Protein (0.0-0.9) mg/dL 10/19/18 10/20/18 10/20/18 Range/Units 17:48 07:00 07:00 PT 16.7 H (8.9-11.4) SEC INR 1.7 H (0.9-1.1) Sodium 138 (136-145) mmol/L Potassium 3.6 (3.3-5.3) mmol/L Chloride 103 (98-115) mmol/L Carbon Dioxide 25.0 (21.0-32.0) mmol/L Anion Gap 13.6 (5-15) mmol/L BUN 15 (6-25) mg/dL Creatinine 0.84 (0.51-1.17) mg/dL Est Cr Clr Drug Dosing 96.23 mL/min Estimated GFR (MDRD) > 60 mL/min Glucose 232 H (75 - 99) mg/dL POC Glucose 205 H (74-106) mg/dl Uric Acid (2.6-7.2) mg/dL Calcium 7.7 L (8.7-10.3) mg/dL C-Reactive Protein 7.8 H (0.0-0.9) mg/dL 10/20/18 Range/Units 07:28 PT (8.9-11.4) SEC INR (0.9-1.1) Sodium (136-145) mmol/L Potassium (3.3-5.3) mmol/L Chloride (98-115) mmol/L Carbon Dioxide (21.0-32.0) mmol/L Anion Gap (5-15) mmol/L BUN (6-25) mg/dL Creatinine (0.51-1.17) mg/dL Est Cr Clr Drug Dosing mL/min Estimated GFR (MDRD) mL/min Glucose (75 - 99) mg/dL POC Glucose 235 H (74-106) mg/dl Uric Acid (2.6-7.2) mg/dL Calcium (8.7-10.3) mg/dL C-Reactive Protein (0.0-0.9) mg/dL CINDY Results - Last 24 hrs: Microbiology 10/16/18 17:45 Aerobic Blood Culture - Preliminary Blood NO GROWTH AFTER 3 DAYS Anaerobic Blood Culture - Preliminary NO GROWTH AFTER 3 DAYS 10/16/18 17:35 Aerobic Blood Culture - Preliminary Blood NO GROWTH AFTER 3 DAYS Anaerobic Blood Culture - Preliminary NO GROWTH AFTER 3 DAYS Med Orders - Current: Current Medications Acetaminophen (Tylenol) 650 mg PO Q4H PRN PRN Reason: Pain/Fever Last Admin: 10/14/18 05:22 Dose: 650 mg Albuterol/Ipratropium (Duoneb 3.0-0.5 Mg/3 Ml) 3 ml NEB Q4HRRT PRN PRN Reason: Shortness of Breath Last Admin: 10/17/18 04:17 Dose: 3 ml Aspirin (Halfprin) 81 mg PO BRK [facility] Last Admin: 10/20/18 08:25 Dose: 81 mg Azithromycin (Zithromax) 500 mg PO DAILY [facility] Last Admin: 10/20/18 08:25 Dose: 500 mg Benzonatate (Tessalon Perles) 100 mg PO QID PRN PRN Reason: Cough Last Admin: 10/18/18 00:33 Dose: 100 mg Ceftriaxone Sodium (Rocephin) 1 gm IVPUSH Q24H [facility] Last Admin: 10/20/18 08:27 Dose: 1 gm Enoxaparin Sodium (Lovenox) 80 mg SUBCUT Q12H [facility] Last Admin: 10/19/18 23:11 Dose: 80 mg Furosemide (Lasix) 40 mg IVPUSH DAILY [facility] Last Admin: 10/20/18 08:26 Dose: 40 mg Guaifenesin (Mucinex) 600 mg PO BID [facility] Last Admin: 10/20/18 08:26 Dose: 600 mg Guaifenesin (Robitussin) 200 mg PO Q4H PRN PRN Reason: Cough Last Admin: 10/19/18 19:16 Dose: 200 mg Guaifenesin/Phenylephrine HCl (Robitussin Dm) 10 ml PO Q4H PRN PRN Reason: Cough Insulin Aspart (Novolog) 0 unit SUBCUT TIDMEALS [facility]; Protocol Last Admin: 10/20/18 08:22 Dose: 6 units Lisinopril (Prinivil) 20 mg PO DAILY [facility] Last Admin: 10/20/18 08:26 Dose: 20 mg Metoprolol Tartrate (Lopressor) 25 mg PO BID [facility] Last Admin: 10/20/18 08:31 Dose: Not Given Nitroglycerin (Nitrostat) 0.4 mg SL ASDIRECTED PRN PRN Reason: Chest Pain Loteprednol (Etabonate [Lotemax]) 1 each EYERT BID [facility] Last Admin: 10/20/18 08:27 Dose: 1 each Sodium Chloride (Saline Flush) 10 ml FLUSH Q8HR PRN PRN Reason: keep vein open Last Admin: 10/18/18 09:16 Dose: 10 ml Sodium Chloride (Saline Flush) 10 ml FLUSH Q8HR PRN PRN Reason: keep vein open Warfarin Sodium (Coumadin) 2.5 mg PO MoWeFr@1800 [facility] Last Admin: 10/14/18 17:59 Dose: 2.5 mg Warfarin Sodium (Coumadin) 5 mg PO SuTuThSa@1800 [facility] Last Admin: 10/13/18 20:10 Dose: 5 mg Warfarin Sodium (Pharmacy To Dose - Warfarin) 1 dose PO ASDIRECTED [facility] Discontinued Medications Acetaminophen (Tylenol) 650 mg PO NOW ONE Stop: 10/13/18 14:30 Last Admin: 10/13/18 14:33 Dose: 650 mg Atropine Sulfate (Atropine 0.1 Mg/Ml) 0 mg IVPUSH ASDIRECTED PRN PRN Reason: Heart Ceftriaxone Sodium (Rocephin) 1 gm IVPUSH ONETIME ONE Stop: 10/13/18 15:40 Last Admin: 10/13/18 15:48 Dose: 1 gm Enoxaparin Sodium (Lovenox) 40 mg SUBCUT Q12H [facility] Last Admin: 10/18/18 11:05 Dose: Not Given Enoxaparin Sodium (Lovenox) 80 mg SUBCUT Q12H [facility] Epinephrine HCl (Epinephrine 1:10,000) 1 mg IVPUSH ASDIRECTED PRN PRN Reason: Heart Furosemide (Lasix) 20 mg IVPUSH NOW ONE Stop: 10/18/18 10:40 Last Admin: 10/18/18 11:23 Dose: 20 mg Furosemide (Lasix) 20 mg IVPUSH NOW ONE Stop: 10/19/18 18:01 Last Admin: 10/19/18 19:15 Dose: 20 mg Guaifenesin (Robitussin) 100 mg PO Q4H PRN PRN Reason: Cough Guaifenesin/Phenylephrine HCl (Robitussin Dm) 10 ml PO Q4H PRN PRN Reason: Cough Last Admin: 10/18/18 02:18 Dose: 10 ml Sodium Chloride (Normal Saline) 1,000 mls @ 999 mls/hr IV .BOLUS ONE Stop: 10/13/18 15:11 Last Admin: 10/13/18 14:25 Dose: 999 mls/hr Azithromycin 500 mg/ Sodium (Chloride) 250 mls @ 250 mls/hr IV ONETIME ONE Stop: 10/13/18 16:38 Last Admin: 10/13/18 16:09 Dose: 250 mls/hr Azithromycin 500 mg/ Sodium (Chloride) 250 mls @ 250 mls/hr IV Q24H [facility] Last Admin: 10/18/18 13:54 Dose: 250 mls/hr Sodium Chloride (Normal Saline) 1,000 mls @ 125 mls/hr IV ASDIRECTED [facility] Last Admin: 10/14/18 10:45 Dose: 125 mls/hr Sodium Chloride (Normal Saline) 500 mls @ 999 mls/hr IV .BOLUS ONE Stop: 10/13/18 20:28 Last Admin: 10/13/18 20:18 Dose: 999 mls/hr Insulin Human Regular 100 unit (/ Sodium Chloride) 100 mls @ 5 mls/hr IV ASDIRECTED [facility] Last Admin: 10/13/18 22:10 Dose: 5 unit/hr, 5 mls/hr Sodium Chloride (Normal Saline) 500 mls @ 500 mls/hr IV NOW ONE Stop: 10/13/18 23:44 Last Admin: 10/14/18 08:05 Dose: Not Given Sodium Chloride (Normal Saline) 1,000 mls @ 100 mls/hr IV ASDIRECTED [facility] Last Admin: 10/15/18 12:42 Dose: 100 mls/hr Sodium Chloride (Normal Saline) 400 mls @ 999 mls/hr IV .BOLUS ONE Stop: 10/14/18 17:03 Last Admin: 10/14/18 17:30 Dose: 999 mls/hr Sodium Chloride (Normal Saline) 250 mls @ 70 mls/hr IV ASDIRECTED [facility] Last Admin: 10/16/18 03:50 Dose: 70 mls/hr Sodium Chloride (Normal Saline) 1,000 mls @ 70 mls/hr IV ASDIRECTED ROXY Sodium Chloride (Normal Saline) 50 mls @ 100 mls/hr IV ASDIRECTED [facility] Last Admin: 10/18/18 13:54 Dose: 100 mls/hr Insulin Aspart (Novolog) 5 unit SUBCUT ONETIME ONE Stop: 10/13/18 19:45 Last Admin: 10/13/18 20:14 Dose: 5 units Insulin Detemir (Levemir) 10 unit SUBCUT ONETIME ONE Stop: 10/13/18 19:41 Last Admin: 10/13/18 20:15 Dose: 10 units Insulin Human Regular (Novolin R) 5 unit IV ONETIME ONE; Protocol Stop: 10/13/18 22:25 Last Admin: 10/13/18 22:00 Dose: 5 unit Insulin Human Regular (Novolin R) 5 unit IV ONETIME ONE; Protocol Stop: 10/14/18 02:00 Last Admin: 10/14/18 02:15 Dose: 5 unit Lidocaine HCl (Xylocaine 2%) 0 mg IVPUSH ASDIRECTED PRN PRN Reason: Heart Metformin HCl (Glucophage) 500 mg PO ONETIME ONE Stop: 10/13/18 14:57 Last Admin: 10/13/18 15:09 Dose: 500 mg Metoprolol Tartrate (Lopressor) 12.5 mg PO ONETIME ONE Stop: 10/13/18 14:57 Last Admin: 10/13/18 15:09 Dose: 12.5 mg Metoprolol Tartrate (Lopressor) 12.5 mg PO BID [facility] Last Admin: 10/18/18 09:14 Dose: 12.5 mg Nitroglycerin (Nitrostat) 0.4 mg SL ASDIRECTED PRN PRN Reason: Heart Phytonadione (Aquamephyton) 2.5 mg PO ONETIME ONE Stop: 10/17/18 11:08 Last Admin: 10/17/18 14:36 Dose: Not Given Phytonadione (Aquamephyton) 2.5 mg PO ONETIME ONE Stop: 10/17/18 12:31 Last Admin: 10/17/18 12:50 Dose: 2.5 mg Potassium Chloride (Klor-Con 10) 10 meq PO ONETIME ONE Stop: 10/18/18 10:40 Last Admin: 10/18/18 11:23 Dose: 10 meq Sodium Chloride (Normal Saline) 500 ml IV ONETIME ONE Stop: 10/13/18 21:46 Last Admin: 10/14/18 11:16 Dose: Not Given Warfarin Sodium (Coumadin) 5 mg PO ONETIME ONE Stop: 10/18/18 18:01 Last Admin: 10/18/18 17:57 Dose: 5 mg Warfarin Sodium (Coumadin) 5 mg PO ONETIME ONE Stop: 10/19/18 18:01 Last Admin: 10/19/18 19:16 Dose: 5 mg
[2018-10-20] MEDS ORDERED: Metoprolol Tartrate 50 MG Tab PO SCH (11:45)
[2018-10-20] MEDS: Enoxaparin 100 MG/1 ML Syringe SUBCUT SCH (12:04)
== END 2018-10-20 16:05 | disposition home or self-care (01) | DRG 871 ==
LOC: KA.ED 13:57 → KA.MS 15:44
PROVIDERS: ADMIT Physician Assistant Surgical; ATTEND Family Medicine
DX: A41.9 Sepsis, unspecified organism (principal); J18.1 Lobar pneumonia, unspecified organism; N17.9 Acute kidney failure, unspecified; E87.1 Hypo-osmolality and hyponatremia; I50.30 Unspecified diastolic (congestive) heart failure; I48.92 Unspecified atrial flutter; E78.00 Pure hypercholesterolemia, unspecified; E11.29 Type 2 diabetes mellitus with other diabetic kidney complication; M10.9 Gout, unspecified; E86.0 Dehydration; E78.5 Hyperlipidemia, unspecified; I25.10 Atherosclerotic heart disease of native coronary artery without angina pectoris; I11.0 Hypertensive heart disease with heart failure; H26.9 Unspecified cataract; I48.2 Chronic atrial fibrillation; Z95.1 Presence of aortocoronary bypass graft; Z95.2 Presence of prosthetic heart valve; Z79.82 Long term (current) use of aspirin; Z79.01 Long term (current) use of anticoagulants; Z79.84 Long term (current) use of oral hypoglycemic drugs; Z94.7 Corneal transplant status
CPT/HCPCS: 36415; 36416; 70450; 71045; 71046; 71250; 73562-LT; 80048; 80053; 82962; 83605; 83880; 84484; 84550; 85025; 85610; 85730; 86140; 87040; 87070; 87077; 87205; 87804; 87899; 93005; 94640; 96360; 99284; 99285-25; A9270-GY; J0456; J0696; J1650; J1815-GY; J1817-GY; J1940; J3430; J7030; J7050; J7620-GY

== ENCOUNTER 2018-10-22 17:35 | Inpatient (IN) | payer MEDICARE, BC ==
[2018-10-22] MEDS ORDERED: Sodium Chloride 0.9% 10 ML Syringe FLUSH PRN (18:22)
[2018-10-22] MEDS ORDERED: Nitroglycerin 0.4 MG Tab.SL SL PRN (20:49)
[2018-10-22] MEDS ORDERED: Labetalol 100 MG/20 ML MDV IVPUSH PRN (20:51)
[2018-10-22] MEDS ORDERED: POTASSIUM GLUCONATE 500 MG PO SCH (21:00)
[2018-10-22] MEDS: Metoprolol Tartrate 50 MG Tab PO SCH (21:17)
[2018-10-23] MEDS ORDERED: guaiFENesin/Dextromethorphan 100-10 MG/5 ML Soln 5 ML Cup PO PRN (03:53)
[2018-10-23] MEDS: Levofloxacin 500 MG Tab PO SCH (08:28)
[2018-10-23] MEDS: Lisinopril 20 MG Tab PO SCH (08:30)
[2018-10-23] MEDS: Fish Oil/Omega-3 Fatty Acids 1 Gm Cap PO SCH (08:31)
[2018-10-23] MEDS: Metoprolol Tartrate 50 MG Tab PO SCH ×2 (08:32→20:23)
[2018-10-23] MEDS: metFORMIN 500 MG Tab PO SCH ×2 (08:32→18:42)
[2018-10-23] MEDS: atorvaSTATin 10 MG Tab PO SCH (08:33)
[2018-10-23] MEDS: Furosemide 20 MG Tab PO SCH (08:33)
[2018-10-23] MEDS: Aspirin 81 MG Tab.EC PO SCH (08:34)
[2018-10-23] MEDS ORDERED: Warfarin 5 MG Tab PO SCH ×2 (09:00→18:00)
[2018-10-23 11:01] LABS: ANION GAP 12.6 mmol/L (5-15); CHLORIDE,CL 100 mmol/L (98-115); SODIUM,NA 135 mmol/L (136-145)
[2018-10-23] MEDS ORDERED: Nitroglycerin 0.4 MG Tab.SL SL PRN (11:22)
[2018-10-23] MEDS ORDERED: EPINEPHrine 1:10,000 1 MG/10 ML Syringe IVPUSH PRN (11:22)
[2018-10-23] MEDS ORDERED: Atropine 0.1 MG/ML 10 ML Syringe IVPUSH PRN (11:22)
[2018-10-23] MEDS ORDERED: Lidocaine 2% 100 MG/5 ML Syringe IVPUSH PRN (11:22)
--- NOTE | 2018-10-23 12:36 | PCM.PN ---
- General Info Date of Service: 10/23/18 Functional Status: Reports: Tolerating Diet, Ambulating (with some difficulty due to leg soreness), Urinating - Review of Systems General: Denies: Fever, Weakness, Malaise, Chills HEENT: Denies: Headaches Pulmonary: Reports: Cough, Sputum. Denies: Shortness of Breath, Wheezing Cardiovascular: Reports: Dyspnea on Exertion, Edema. Denies: Chest Pain, Palpitations Neurological: Denies: Headache Psychiatric: Reports: No Symptoms - Patient Data Vitals - Most Recent: Last Vital Signs Temp 98.8 F 10/23/18 11:00 Pulse 80 10/23/18 11:00 Resp 12 10/23/18 07:00 BP 111/60 10/23/18 11:00 Pulse Ox 95 10/23/18 11:00 Weight - Most Recent: 193 lb 1.6 oz I&O - Last 24 Hours: Intake & Output 10/22/18 10/23/18 10/23/18 22:59 06:59 14:59 Output Total 500 Balance -500 Lab Results Last 24 Hours: Laboratory Results - last 24 hr 10/22/18 10/22/18 10/23/18 Range/Units 18:55 21:23 08:00 PT TNP INR 3.4 H (0.9-1.1) Sodium (136-145) mmol/L Potassium (3.3-5.3) mmol/L Chloride (98-115) mmol/L Carbon Dioxide (21.0-32.0) mmol/L Anion Gap (5-15) mmol/L BUN (6-25) mg/dL Creatinine (0.51-1.17) mg/dL Est Cr Clr Drug Dosing mL/min Estimated GFR (MDRD) mL/min Glucose (75 - 99) mg/dL POC Glucose 213 H (74-106) mg/dl Calcium (8.7-10.3) mg/dL Troponin I < 0.04 (0.00-0.070) ng/mL 10/23/18 10/23/18 Range/Units 08:20 10:30 PT INR (0.9-1.1) Sodium 135 L (136-145) mmol/L Potassium 4.2 (3.3-5.3) mmol/L Chloride 100 (98-115) mmol/L Carbon Dioxide 26.6 (21.0-32.0) mmol/L Anion Gap 12.6 (5-15) mmol/L BUN 12 (6-25) mg/dL Creatinine 0.79 (0.51-1.17) mg/dL Est Cr Clr Drug Dosing 99.29 mL/min Estimated GFR (MDRD) > 60 mL/min Glucose 331 H (75 - 99) mg/dL POC Glucose 236 H (74-106) mg/dl Calcium 8.2 L (8.7-10.3) mg/dL Troponin I (0.00-0.070) ng/mL Med Orders - Current: Current Medications Aspirin (Halfprin) 81 mg PO BRK [facility] Last Admin: 10/23/18 08:34 Dose: 81 mg Atorvastatin Calcium (Lipitor) 20 mg PO DAILY [facility] Last Admin: 10/23/18 08:33 Dose: 20 mg Atropine Sulfate (Atropine 0.1 Mg/Ml) 0 mg IVPUSH ASDIRECTED PRN PRN Reason: Heart Epinephrine HCl (Epinephrine 1:10,000) 1 mg IVPUSH ASDIRECTED PRN PRN Reason: Heart Fish Oil (Fish Oil) 1 gm PO DAILY [facility] Last Admin: 10/23/18 08:31 Dose: 1 gm Furosemide (Lasix) 20 mg PO DAILY [facility] Last Admin: 10/23/18 08:33 Dose: 20 mg Guaifenesin/Phenylephrine HCl (Robitussin Dm) 10 ml PO Q4H PRN PRN Reason: Cough Last Admin: 10/23/18 04:23 Dose: 10 ml Labetalol HCl (Normodyne) 20 mg IVPUSH Q4H PRN; Protocol PRN Reason: Tachycardia Levofloxacin (Levaquin) 750 mg PO DAILY [facility] Last Admin: 10/23/18 08:28 Dose: 750 mg Lidocaine HCl (Xylocaine 2%) 0 mg IVPUSH ASDIRECTED PRN PRN Reason: Heart Lisinopril (Prinivil) 20 mg PO DAILY [facility] Last Admin: 10/23/18 08:30 Dose: 20 mg Metformin HCl (Glucophage) 500 mg PO BIDMEALS [facility] Last Admin: 10/23/18 08:32 Dose: 500 mg Metoprolol Tartrate (Lopressor) 50 mg PO BID [facility] Last Admin: 10/23/18 08:32 Dose: 50 mg Nitroglycerin (Nitrostat) 0.4 mg SL ASDIRECTED PRN PRN Reason: Chest Pain Nitroglycerin (Nitrostat) 0.4 mg SL ASDIRECTED PRN PRN Reason: Heart Potassium Chloride (Klor-Con M20) 20 meq PO BEDTIME [facility] Sodium Chloride (Saline Flush) 10 ml FLUSH Q8HR PRN PRN Reason: keep vein open Warfarin Sodium (Pharmacy To Dose - Warfarin) 1 dose .XX ASDIRECTED [facility] Warfarin Sodium (Coumadin) 5 mg PO SuTuThSa@1800 [facility] Warfarin Sodium (Coumadin) 2.5 mg PO MoWeFr@1800 [facility] Discontinued Medications Non-Formulary Medication (Loteprednol Etabonate [Lotemax]) 1 drop EYERT BID [facility] Non-Formulary Medication (Potassium Gluconate [Potassium Gluconate]) 500 mg PO BEDTIME [facility] Warfarin Sodium (Coumadin) 5 mg PO DAILY [facility] Warfarin Sodium (Coumadin) 5 mg PO DAILY@1800 [facility] - Exam Quality Assessment: DVT Prophylaxis (on warfarin). No: Supplemental Oxygen General: Alert, Oriented, Cooperative, No Acute Distress Lungs: Normal Respiratory Effort, Decreased Breath Sounds (throughout), Crackles (RLL) Cardiovascular: Irregular Rhythm, Tachycardia (90-105), Murmurs (2/6 systolic) Extremities: Other (2+ edema to RLE, 1+ edema to LLE) Skin: Warm, Dry Neurological: Normal Speech Psy/Mental Status: Alert, Normal Affect, Normal Mood - Problem List Review Problem List Initiated/Reviewed/Updated: Yes - My Orders Last 24 Hours: My Active Orders 10/23/18 08:30 Pharmacy to Dose - Warfarin 1 dose .XX ASDIRECTED 10/23/18 10:10 Up ad Nika [RC] ASDIRECTED 10/23/18 21:00 Potassium Chloride [Klor-Con M20] 20 meq PO BEDTIME 10/24/18 05:11 BMP [BASIC METABOLIC PANEL,BMP] [CHEM] AM - Plan Plan:: HPI: This is a 63 year old male who presented to the [facility] yesterday for hospital follow-up. He was found to have a heart rate of 120-130s and in atrial flutter which is chronic for him. Patient is able to feel the palpitations and tachycardia and states that he will typically just sit down and rest and it eventually subsides. Patient was recently in the hospital (-10/20/18) for RLL community acquired pneumonia with sepsis and atrial flutter. Patient was discharged on oral levaquin for a total of 14 days due to bacteremia. During his past hospital stay it was noted that he had clinical signs of CHF with a BNP of 309 and lower extremity edema. He was given IV lasix with improvement. PMH CABG x 3, mitral valve annuloplasty, HLD, HTN, CAD. Update on rounds: Patient feels okay other than his frequent cough. He has not had any palpitations. He has been resting in the chair and not up moving about much. Primary assessment/plan: Paroxysmal atrial fibrillation. Mg 2.0, K 4.4, Hgb 10.9. HR ranges from 80-105 overnight. No physical exertion performed, but will have him up in the halls today with close monitoring of his heart rate via telemetry. Continue lopressor 50 mg BID and warfarin as directed per pharmacy. INR 3.4. Low hemoglobin. Hgb 10.9. Repeat CBC in AM. This is down from baseline hemoglobin of around 13. No signs of bleeding. Streptococcus pneumonia, CAP of RLL, present on this admission. Continue levaquin 750 mg po daily with completion of therapy after dose on 10/26/18. Secondary assessment/plan: Peripheral edema, improved. HFpEF. BNP 136. Continue oral lasix. ECHO (2018) noted EF 50%, moderately dilated left ventricle with increased wall thickness, low normal systolic function, and unable to assess diastolic function due to abnormal rhythm. S/P mitral valve repair. HTN. Continue lisinopril. CAD. Continue aspirin. S/P CABG x 3. Moderate pulmonary artery hypertension. HLD. Continue lipitor. LDL 52 (December 2017). Obesity. T2DM. A1c 6.5 (05/2018). Continue metformin. DVT prophylaxis. On warfarin. Overall plan: Patient will be up in the halls today with close monitoring of his heart rate. May be able to be discharged home tomorrow.
[2018-10-23] MEDS: LOTEPREDNOL ETABONATE EYERT SCH (14:54)
[2018-10-23] MEDS ORDERED: Warfarin 2.5 MG Tab PO SCH (18:00)
[2018-10-23] MEDS: Potassium Chloride 20 MEQ Tab.ER PO SCH (20:23)
[2018-10-24 07:57] LABS: ANION GAP 13.6 mmol/L (5-15); CHLORIDE,CL 103 mmol/L (98-115); SODIUM,NA 139 mmol/L (136-145)
[2018-10-24] MEDS: atorvaSTATin 10 MG Tab PO SCH (08:47)
[2018-10-24] MEDS: Lisinopril 20 MG Tab PO SCH (08:47)
[2018-10-24] MEDS: Metoprolol Tartrate 50 MG Tab PO SCH ×2 (08:48→20:24)
[2018-10-24] MEDS: Fish Oil/Omega-3 Fatty Acids 1 Gm Cap PO SCH (08:48)
[2018-10-24] MEDS: metFORMIN 500 MG Tab PO SCH ×2 (08:49→18:51)
[2018-10-24] MEDS: Aspirin 81 MG Tab.EC PO SCH (08:49)
[2018-10-24] MEDS: Furosemide 20 MG Tab PO SCH (08:49)
[2018-10-24] MEDS: Levofloxacin 500 MG Tab PO SCH (08:49)
[2018-10-24] MEDS: Magnesium Oxide 500 MG Tab PO SCH (14:47)
[2018-10-24] MEDS ORDERED: Warfarin 5 MG Tab PO SCH (18:00)
[2018-10-24] MEDS ORDERED: Warfarin 2.5 MG Tab PO ONE (20:15)
[2018-10-24] MEDS: Potassium Chloride 20 MEQ Tab.ER PO SCH (20:24)
--- NOTE | 2018-10-24 21:02 | PN ---
10/24/2018 PATIENT NAME: WHIT DAVILA HISTORY OF PRESENT ILLNESS: This 63-year-old male patient was admitted for hospitalization due to atrial flutter/tachycardia. This was noted on his post hospital followup in the clinical setting and resulted in the inpatient hospitalization. He had previously been hospitalized due to a community- acquired pneumonia with sepsis and atrial flutter. He was discharged home on Levaquin x14 days. His history is inclusive of CHF and an elevated BNP of 309. He did get IV Lasix and noted improvement. PAST MEDICAL HISTORY: Includes mitral valve annuloplasty, CABG x3, HLD, hypertension, and coronary artery disease. Update on his rounds today, the patient states he is not having any cardiac symptoms. He notes no palpitations, chest pain, or shortness of breath. He does have a residual cough during the day and at night. He states he does not feel as if he has a fever. He is taking his fluids and his diet well. Nursing staff reports that he did have one episode of atrial flutter during the night with a heart rate of 35. This occurred at approximately 5 a.m. and was of short duration. He also had an 18 second episode of ventricular tachycardia at approximately 11:20 this morning. Each of these episodes was short in duration. The patient had no symptoms. He denied any chest pain, feelings of palpitations, or shortness of breath. He was visiting with his at the time and states he is completely asymptomatic. In review of his previous chart, it is noted that he had an echo on 03/2018 with an ejection fraction of 50%. He also has a history of asymptomatic chronic atrial fibrillation. REVIEW OF SYSTEMS TODAY: HEENT: Negative. CARDIOVASCULAR: See HPI. RESPIRATORY: No shortness of breath. He does have a residual cough in relation to his previous community-acquired pneumonia. GI: He is taking his diet and fluids well without any GI upset. EXTREMITIES: He did have lower extremity edema on his previous hospitalization, he was treated, and that has resolved. PHYSICAL EXAMINATION: VITAL SIGNS: Stable noting the atrial fibrillation/flutter. HEENT: Head is normocephalic. Conjunctivae are clear. Noted no nasal drainage. RESPIRATORY: Lung sounds do reveal some slight crackles throughout. He does have intermittent harsh congested cough. CARDIOVASCULAR: His heart rate and rhythm is irregularly irregular. He is tachycardic at times from approximately 90 to 110 beats per minute, occasionally his rate increases into the 120s, and he did have a one time heart rate of 35 during the night. He does have a 2/6 systolic murmur. EXTREMITIES: He has no muscle or joint pain to palpation. He does have a trace of edema at the right lower ankle. No edema of the left. SKIN: His skin is warm and dry to touch. There is no rashes, sores, or moles. NEUROLOGICAL: He is alert and oriented, responding to questions appropriately. IMPRESSION AND PLAN: His primary assessment is paroxysmal atrial fibrillation/flutter. We did obtain a magnesium this morning, which is 1.8. He will have oral magnesium added to his medication regime at 500 mg daily, and we will obtain magnesium in the morning. An EKG was obtained post-ventricular tachycardia episode noting atrial fibrillation with a left axis deviation. His rate was 97 beats per minute. He did have history of low hemoglobin which is 10.7. He has no active bleeding. Streptococcus pneumoniae, he will complete his Levaquin series. His secondary assessments include peripheral edema which has resolved at this time; status post mitral valve repair; hypertension for which he is receiving lisinopril; CAD, he is on aspirin; hypercholesterolemia, he receives Lipitor; he is type 2 diabetic and he is receiving metformin; he is on DVT prophylaxis of warfarin. His plan for the day will be to continue to be monitored per telemetry. He will be active in the hallways and he will be assessed for any further episodes of arrhythmias. case discussed with Dr. Arredondo /[id number]/MODL MTDD
[2018-10-25] MEDS: Furosemide 20 MG Tab PO SCH (09:19)
[2018-10-25] MEDS: metFORMIN 500 MG Tab PO SCH (09:19)
[2018-10-25] MEDS: atorvaSTATin 10 MG Tab PO SCH (09:19)
[2018-10-25] MEDS: Metoprolol Tartrate 50 MG Tab PO SCH (09:20)
[2018-10-25] MEDS: Magnesium Oxide 500 MG Tab PO SCH (09:20)
[2018-10-25] MEDS: Levofloxacin 500 MG Tab PO SCH (09:20)
[2018-10-25] MEDS: Lisinopril 20 MG Tab PO SCH (09:20)
[2018-10-25] MEDS: Aspirin 81 MG Tab.EC PO SCH (09:20)
[2018-10-25] MEDS: Fish Oil/Omega-3 Fatty Acids 1 Gm Cap PO SCH (09:21)
--- NOTE | 2018-10-29 08:23 | DISCH ---
DISCHARGE DIAGNOSIS: 1. Paroxysmal atrial fibrillation/flutter. 2. Streptococcus pneumonia, resolving. BRIEF HISTORY: This is a 63-year-old male patient who was hospitalized due to an onset of paroxysmal atrial fibrillation and flutter along with tachycardia. He previously had been hospitalized due to community-acquired pneumonia. During his followup clinical visit, it was noted that the patient was tachycardiac with atrial fibrillation present. As a result, he was hospitalized. During his course, he remained asymptomatic. He did have one episode that was noted on telemetry of bradycardia and an episode of ventricular tachycardia. Each of these episodes were asymptomatic. He was monitored per telemetry. He received his medications and responded appropriately. His pneumonia is resolving. He does have a residual cough. COMPLICATIONS: The patient was rehospitalized due to atrial fibrillation following an inpatient stay due to community-acquired pneumonia. LABS AND DIAGNOSTICS: Labs and diagnostics were monitored on a daily basis. Noted a low magnesium. Patient was started on supplemental magnesium. The patient was on telemetry. PHYSICAL EXAMINATION: VITAL SIGNS: Stable. HEENT: Head is normocephalic. Conjunctivae are clear. No nasal drainage. RESPIRATORY: Lung sounds noted some fine crackles in the right lower lobe. He does have an intermittent harsh cough. CARDIOVASCULAR: Heart rate and rhythm is irregularly irregular. ABDOMEN: Soft. Nontender. Bowel sounds are present. EXTREMITIES: Noted no lower extremity edema. He does complain of some mild arthralgic discomfort to palpation on the posterior aspect of the right knee. SKIN: Warm and dry to touch. NEUROLOGIC: The patient is alert and oriented. DISPOSITION: The patient was stable for discharge. He received a discharge packet which included his post discharge medications (refer to discharge packet for medication listing) along with his followup appointment for post hospitalization. This will be scheduled for early next week. The patient will complete his Levaquin series in regards to the CAP and notify the hospital/ clinic if he has any concerns post discharge. discussed case with Dr. Arredondo /[id number]/MODL MTDD
== END 2018-10-25 14:00 | disposition home or self-care (01) | DRG 308 ==
LOC: KA.MS 17:35 → UNDOADMIN 17:35
PROVIDERS: ADMIT Nurse Practitioner Family; ATTEND Family Medicine
DX: I48.0 Paroxysmal atrial fibrillation (principal); I11.0 Hypertensive heart disease with heart failure; I50.31 Acute diastolic (congestive) heart failure; J13 Pneumonia due to Streptococcus pneumoniae; I48.92 Unspecified atrial flutter; I25.10 Atherosclerotic heart disease of native coronary artery without angina pectoris; E66.9 Obesity, unspecified; E78.2 Mixed hyperlipidemia; I27.20 Pulmonary hypertension, unspecified; E11.9 Type 2 diabetes mellitus without complications; Z94.7 Corneal transplant status; Z95.1 Presence of aortocoronary bypass graft; Z95.2 Presence of prosthetic heart valve; Z68.35 Body mass index [BMI] 35.0-35.9, adult
CPT/HCPCS: 36415; 36416; 80048; 82962; 83735; 84484; 85025; 85610; 93005; A9270-GY